=== PATIENT | male | born 1980 | race African-American/Black ===

== ENCOUNTER 2021-04-21 16:43 | Inpatient (IN) | payer OTHER ==
[~2021-04-21] VITALS: Ht 165.1 cm; Wt 104.3 kg
[2021-04-21] MEDS ORDERED: ACETAMINOPHEN ES 500 MG TABLET PO ONE (18:45)
[2021-04-21] MEDS ORDERED: ALBUTEROL SULFATE 8 GM HFA.AER.AD IH PRN ×2 (18:45→22:45)
[2021-04-21] MEDS ORDERED: DEXAMETHASONE SOD PHOSPHATE 4 MG INJ IV ONE (18:45)
[2021-04-21 19:11] LABS: HEMATOCRIT 46.9 % (36.7-47.1); MEAN CORPUSCULAR HEMOGLOBIN 30.6 uug (23.8-33.4); MEAN CORPUSCULAR VOLUME 90.6 fL (73.0-96.2); PLATELET COUNT (AUTO) 160 K/uL (152-348)
--- NOTE | 2021-04-21 19:13 | NUR ---
PCR COVID test collected and sent to LAB.
[2021-04-21 19:19] LABS: CARBON DIOXIDE 28 mmol/L (21-32); CHLORIDE 99 mmol/L (98-107); GLUCOSE 165 mg/dL (74-106); POTASSIUM 3.4 mmol/L (3.5-5.1); UREA NITROGEN, BLOOD 6 mg/dL (7-18)
--- NOTE | 2021-04-21 19:19 | NUR ---
Handsoff report given to Ede Talavera.
[2021-04-21] MEDS ORDERED: ACETAMINOPHEN ES 500 MG TABLET ONE (19:22)
[2021-04-21] MEDS ORDERED: DEXAMETHASONE SOD PHOSPHATE 10 MG INJ ONE (19:23)
[2021-04-21 19:31] LABS: ALANINE AMINOTRANSFERASE 96 U/L (16-63); ALKALINE PHOSPHATASE 40 U/L (50-136); ASPARTATE AMINOTRANSFERASE 61 U/L (15-37); BILIRUBIN,TOTAL 0.4 mg/dL (0.2-1.0); CREATINE KINASE, TOTAL 879 U/L (39-308); TOTAL PROTEIN, SERUM 7.4 g/dL (6.4-8.2)
[2021-04-21 19:56] LABS: FERRITIN 1883 ng/mL (26-388); LACTATE DEHYDROGENASE 333 U/L (85-227)
[2021-04-21] MEDS ORDERED: ENOXAPARIN SODIUM 80 MG/0.8 ML DISP.SYRIN SQ ONE ×2 (20:15→21:06)
[2021-04-21] MEDS ORDERED: IV NORMAL SALINE 500 ML BAG IV ONE (20:15)
[2021-04-21] MEDS ORDERED: POTASSIUM CHLORIDE 20 MEQ TAB.PRT.SR PO ONE (20:15)
[2021-04-21] MEDS ORDERED: ENOXAPARIN SODIUM 40 MG/0.4 ML DISP.SYRIN SQ ONE (21:03)
[2021-04-21] MEDS ORDERED: POTASSIUM CHLORIDE 20 MEQ TAB.PRT.SR ONE (21:04)
[2021-04-21] MEDS ORDERED: ALBUTEROL SULFATE 2.5 MG/3 ML NEBU NEB ONE (21:45)
[2021-04-21] MEDS ORDERED: ALBUTEROL SULFATE 2.5 MG/3 ML NEBU ONE (21:48)
--- NOTE | 2021-04-21 22:08 | NUR ---
Called [facility] to page Evangelina Ahuja NP.
--- NOTE | 2021-04-21 22:09 | NUR ---
Dr. Jones on panel call with Evangelina Ahuja NP.
[2021-04-22 01:30] VITALS: BP 108/66
[2021-04-22 05:55] VITALS: BP 124/71
[2021-04-22 06:50] LABS: HEMATOCRIT 46.3 % (36.7-47.1); MEAN CORPUSCULAR HEMOGLOBIN 30.7 uug (23.8-33.4); MEAN CORPUSCULAR VOLUME 91.7 fL (73.0-96.2); PLATELET COUNT (AUTO) 185 K/uL (152-348)
[2021-04-22 07:38] LABS: BILIRUBIN,TOTAL 0.3 mg/dL (0.2-1.0); POTASSIUM 4.5 mmol/L (3.5-5.1); TOTAL PROTEIN, SERUM 7.4 g/dL (6.4-8.2)
[2021-04-22] MEDS: DEXAMETHASONE SOD PHOSPHATE 4 MG INJ IV SCH (08:32)
[2021-04-22] MEDS ORDERED: ALBU8.5H8 INH (09:49)
[2021-04-22 11:03] VITALS: BP 102/55
[2021-04-22] MEDS ORDERED: REMDESIVIR (CHARGED) 200 MG in IV NORMAL SALINE 210 ML IV ONE (14:00)
[2021-04-22 15:04] VITALS: BP 104/57
[2021-04-22] MEDS: BENZONATATE 100 MG CAPSULE PO PRN (17:10)
[2021-04-22] MEDS: ALBUTEROL SULFATE 8 GM HFA.AER.AD IH PRN (18:14)
--- NOTE | 2021-04-22 18:24 | NUR ---
Patient resting in bed. AOx4. On 2L O2 via NC. NSR on monitoring engineer. No signs of acute distress. Patient denies SOB/ . Patient with right UA midline, patent and intact. Patient complained of cough, Tessalon Perles PRN given. Compliant with medications and care. Needs anticipated and met. Safety measures provided. Call light within reach. Will endorse to incoming shift for continuity of care.
[2021-04-22 20:00] VITALS: BP 100/41
[2021-04-22] MEDS: ENOXAPARIN SODIUM 40 MG/0.4 ML DISP.SYRIN SQ SCH (20:14)
[2021-04-23] VITALS: BP 117/54
[2021-04-23] MEDS: ACETAMINOPHEN 325 MG TABLET PO PRN (03:13)
[2021-04-23] MEDS: BENZONATATE 100 MG CAPSULE PO PRN ×2 (03:13→20:01)
[2021-04-23] MEDS: ALBUTEROL SULFATE 8 GM HFA.AER.AD IH PRN (03:28)
[2021-04-23 04:00] VITALS: BP 103/48
[2021-04-23] MEDS: PANTOPRAZOLE SODIUM 40 MG TABLET.DR PO SCH (06:32)
--- NOTE | 2021-04-23 06:53 | NUR ---
PT RESTED WELL IN BETWEEN CARE; NOTED TO BE WHEEZING; INHALER GIVEN; C/O HEADACHE, TYLENOL GIVEN; PT'S PCR CAME BACK NEGATIVE; PT ALSO WOULD LIKE TO HAVE HHN THAN INHALERS.
[2021-04-23 08:05] LABS: HEMATOCRIT 45.8 % (36.7-47.1); MEAN CORPUSCULAR HEMOGLOBIN 30.8 uug (23.8-33.4); MEAN CORPUSCULAR VOLUME 91.2 fL (73.0-96.2); PLATELET COUNT (AUTO) 215 K/uL (152-348)
[2021-04-23] MEDS: DEXAMETHASONE SOD PHOSPHATE 4 MG INJ IV SCH (08:08)
[2021-04-23 08:59] LABS: ALANINE AMINOTRANSFERASE 91 U/L (16-63); ALKALINE PHOSPHATASE 41 U/L (50-136); ASPARTATE AMINOTRANSFERASE 54 U/L (15-37); BILIRUBIN,TOTAL 0.3 mg/dL (0.2-1.0); CARBON DIOXIDE 29 mmol/L (21-32); CHLORIDE 104 mmol/L (98-107); CREATININE 0.8 mg/dL (0.6-1.3); GLUCOSE 136 mg/dL (74-106); TOTAL PROTEIN, SERUM 7.2 g/dL (6.4-8.2); UREA NITROGEN, BLOOD 11 mg/dL (7-18)
[2021-04-23 09:01] LABS: BILIRUBIN,DIRECT < 0.1 mg/dL (0.0-0.2)
--- NOTE | 2021-04-23 10:00 | NUR ---
NOTED MID LINE WITH RESISTANCE EVEN THOUGH IT WAS INSERTED YESTERDAY MD NOTIFIED STATED TO REINSERT CALLED AND NOTIFIED THE RADIO MAINTAINER AND HE STATED WILL CALL THE MIDLINE NURSE TO INSERT.
[2021-04-23 10:02] LABS: ABG BASE EXCESS 3.5 mmol/L; ABG HCO3 28.2 mmol/L; ABG PH 7.435 (7.350-7.450); ABG PO2 79.1 mmHg (75.0-100.0); ABG SITE RIGHT RADIAL; ABG TOTAL HEMOGLOBIN 15.5 G/dL (13.5-18.0); MetHb 0.3 % (0.0-1.5); O2Hb 94.8 % (94.0-97.0); VENT MODE Nasal Cannula
[2021-04-23 11:19] VITALS: BP 110/70
[2021-04-23] MEDS ORDERED: REMDESIVIR (CHARGED) 100 MG in IV NORMAL SALINE 100 ML IV SCH (14:00)
--- NOTE | 2021-04-23 14:00 | NUR ---
MID LINE INSERTED TO HIS LEFT UPPER ARM GAUGE 18 AND PATIENT TOLERATED PROCEDURE WELL.
[2021-04-23 15:13] VITALS: BP 110/54
--- NOTE | 2021-04-23 16:20 | NUR ---
PATIENT IS REQUESTING FOR HHN TREATMENT DR LONG NOTIFIED WITH ORDERS RESPIRATORY THERAPIST NOTIFIED TO INITIATE TREATMENT.
[2021-04-23] MEDS: ALBUTEROL SULFATE 1.25 MG/3 ML NEBU NEB PRN ×2 (16:57→21:37)
--- NOTE | 2021-04-23 18:00 | NUR ---
PATIENT IS RESTING STATED THAT THE HHN TREATMENT WAS HELPFUL INFORMED HIM THAT HE CAN GET IT NEEDED EVERY 4 HOURS AND HE EXPRESSED UNDERSTANDING.
--- NOTE | 2021-04-23 19:45 | NUR ---
PATIENT ALERT ORIENTED, NO CHEST PAIN, CONT ON HHN TX FOR COUGH AND SOB. PATIENT AFEBRILE, NO COMPLAIN OF PAIN, PATIENT HAS EPISODE OF DRY COUGH, CONT TO MONITOR. HHN TX HELPS PATIENT.
[2021-04-23 20:00] VITALS: BP 119/72
[2021-04-23] MEDS: ENOXAPARIN SODIUM 40 MG/0.4 ML DISP.SYRIN SQ SCH (20:20)
[2021-04-24] VITALS: BP 123/77
--- NOTE | 2021-04-24 03:39 | NUR ---
PATIENT ASLEEP, NO SOB NO CHEST PAIN, CONT ON OXYGEN 2 LITERS NC, SAT WNL. NO COMPLAIN OF PAIN, TELE MONITOR SINUS RHYTHM SINUS TACHY, CONT TO MONITOR.
[2021-04-24 04:00] VITALS: BP 125/83
[2021-04-24] MEDS: ALBUTEROL SULFATE 1.25 MG/3 ML NEBU NEB PRN ×4 (04:29→20:18)
[2021-04-24] MEDS: PANTOPRAZOLE SODIUM 40 MG TABLET.DR PO SCH (06:23)
[2021-04-24 06:38] LABS: HEMATOCRIT 42.8 % (36.7-47.1); MEAN CORPUSCULAR HEMOGLOBIN 30.6 uug (23.8-33.4); MEAN CORPUSCULAR VOLUME 91.4 fL (73.0-96.2); PLATELET COUNT (AUTO) 228 K/uL (152-348)
[2021-04-24 06:57] LABS: ALANINE AMINOTRANSFERASE 78 U/L (16-63); ALKALINE PHOSPHATASE 39 U/L (50-136); ASPARTATE AMINOTRANSFERASE 46 U/L (15-37); BILIRUBIN,DIRECT 0.2 mg/dL (0.0-0.2); BILIRUBIN,TOTAL 0.4 mg/dL (0.2-1.0); CARBON DIOXIDE 31 mmol/L (21-32); CHLORIDE 104 mmol/L (98-107); CREATININE 0.7 mg/dL (0.6-1.3); GLUCOSE 124 mg/dL (74-106); POTASSIUM 3.8 mmol/L (3.5-5.1); TOTAL PROTEIN, SERUM 6.6 g/dL (6.4-8.2); UREA NITROGEN, BLOOD 9 mg/dL (7-18)
--- NOTE | 2021-04-24 07:10 | NUR ---
RECEIVED PT AWAKE,ALERT AND ORIENTEDX4. PT IN NO ACUTE DISTRESS. IV INTACT. PT ON 2L NASAL CANNULA. SAFETY AND COMFORT PROVIDED. WILL CONTINUE TO MONITOR.
[2021-04-24] MEDS: DEXAMETHASONE SOD PHOSPHATE 4 MG INJ IV SCH (08:26)
[2021-04-24] MEDS: METFORMIN HCL 500 MG TABLET PO SCH ×2 (09:23→17:19)
--- NOTE | 2021-04-24 10:50 | NUR ---
RESPIRATORY THERAPIST CALLED TO DO BREATHING TREATMENT PRN.
[2021-04-24 11:25] VITALS: BP 122/54
--- NOTE | 2021-04-24 13:32 | NUR ---
Dr. Hansen saw the pt. Pt walked more than 20 feet without oxygen and got 98-100% room air oxygen saturation. Pt in no acute distress with steady gait . Safety and comfort provided. Will continue to monitor.
[2021-04-24 15:12] VITALS: BP 116/70
--- NOTE | 2021-04-24 18:57 | NUR ---
PT IN NO ACUTE RESPIRATORY DISTRESS. IV INTACT. BREATHING TREATMENT PRN NEEDED. PRESCRIBED MEDICATION GIVEN AND PT TOLERATED IT WELL. SAFETY AND COMFORT PROVIDED. ALL NEEDS ARE MET. WILL ENDORSE TO INCOMING NURSE FOR CONTINUITY OF CARE.
[2021-04-24 20:12] VITALS: BP 118/75
[2021-04-24] MEDS: ENOXAPARIN SODIUM 40 MG/0.4 ML DISP.SYRIN SQ SCH (20:48)
[2021-04-24] MEDS: levoFLOXacin 750MG/D5W 750 MG in PREMIXED 1 EACH IV SCH (21:01)
--- NOTE | 2021-04-24 22:15 | NUR ---
Patient in bed AALOx4 with O2 at 2LPM via NC , no s/s of distress noted. Denies pain. Breathing tx provided PRN. Midline on left arm intact.Infused IV ATB as ordered.No a/r noted.VSS .
[2021-04-25 04:30] VITALS: BP 109/60
[2021-04-25] MEDS: PANTOPRAZOLE SODIUM 40 MG TABLET.DR PO SCH (06:06)
[2021-04-25] MEDS: ALBUTEROL SULFATE 1.25 MG/3 ML NEBU NEB PRN ×4 (07:29→19:29)
--- NOTE | 2021-04-25 08:00 | NUR ---
received report from awake overnight counselor nurse. pt is alert and oriented x 4. on tele, runs tachycardic. pt is ambulatory. complains of cough but refused tessalon during awake overnight counselor. will continue to monitor.
[2021-04-25] MEDS: METFORMIN HCL 500 MG TABLET PO SCH ×2 (08:49→18:13)
[2021-04-25] MEDS: BENZONATATE 100 MG CAPSULE PO PRN (09:35)
--- NOTE | 2021-04-25 09:46 | NUR ---
pt complains of cough and spitting up mucus that is "dark purple" provided tessalon for cough, pt agreed to take it but finds it is not effective. provided specimen cup for pt to use when spitting up mucus to evaluate.notified MD. New orders carried out.
--- NOTE | 2021-04-25 11:00 | NUR ---
assessed sputum in specimen cup, appears cloudy with small tainted blood. administered prn Robitussin, pt stated Robitussin alleviated some of the discomfort and congestion from coughing.
[2021-04-25] MEDS: GUAIFENESIN/CODEINE 5 ML LIQUID UDC PO PRN ×2 (11:37→18:12)
[2021-04-25 11:45] VITALS: BP 127/68
--- NOTE | 2021-04-25 13:00 | NUR ---
rapid covid test performed. negative result. md notified.
[2021-04-25 16:00] VITALS: BP 117/67
[2021-04-25] MEDS ORDERED: LEVO500T90 PO (18:08)
[2021-04-25] MEDS ORDERED: GUAI-925 PO (18:08)
[2021-04-25] MEDS ORDERED: ALBU8.5H8 INH (18:08)
[2021-04-25] MEDS ORDERED: METF-440 PO (18:08)
--- NOTE | 2021-04-25 19:04 | NUR ---
PT STILL HAVING SOME TROUBLE BREATHING. PAIN WITH COUGH. MD NOTIFIED. WILL CONTINUE WITH DC TOMORROW AM 04/26/21.
--- NOTE | 2021-04-25 19:30 | NUR ---
Receive patient sitting up in bed. AAOx4. In no apparent distress. Denies any pain at this time. Mild SOB on exertion. On O2 at 2LPM via NC. O2 sat at 93% at this time. Telephone call to RT to provide breathing treatment and Peter states understanding. Sinus tachy on tele at 125/min. Midline on left upper arm intact and patent. Needs assessed and attended to. Safety measure initiated and call berry within reached.
--- NOTE | 2021-04-25 19:45 | NUR ---
Dr Hansen into visit. Informed regarding pt diet order as regular and pt with hx of DM and gave verbal order to [facility]. Order carried out.
--- NOTE | 2021-04-25 19:52 | NUR ---
Dr. Anaya with verbal order to place patient on Motrin 400mg 1 tab PO every 8 hours PRN for pain. Order read back and verified. Will carry out order.
[2021-04-25] MEDS: IBUPROFEN 400 MG TABLET PO PRN (20:21)
[2021-04-25] MEDS: ENOXAPARIN SODIUM 40 MG/0.4 ML DISP.SYRIN SQ SCH (20:21)
[2021-04-25] MEDS: levoFLOXacin 750MG/D5W 750 MG in PREMIXED 1 EACH IV SCH (20:21)
[2021-04-25 20:25] VITALS: BP 113/70
--- NOTE | 2021-04-25 21:30 | NUR ---
Dressing on midline coming off. Dressing change to midline site done.
[2021-04-26] VITALS: BP 109/76
[2021-04-26] MEDS: ONDANSETRON ODT 4 MG TAB.RAPDIS SL PRN (03:31)
[2021-04-26 04:00] VITALS: BP 115/70
[2021-04-26] MEDS: GUAIFENESIN/CODEINE 5 ML LIQUID UDC PO PRN ×3 (06:06→20:17)
[2021-04-26] MEDS: PANTOPRAZOLE SODIUM 40 MG TABLET.DR PO SCH (06:06)
--- NOTE | 2021-04-26 06:14 | NUR ---
AAOx4. In no apparent distress. Denies any pain or discomfort. Afebrile. Sporadic cough. Robitussin AC 10ml x1 given this AM per pt request for cough and effective. On O2 at 2LPM via NC. O2 sat at 93%. Sinus tachy on tele at 129/min. Zofran PRN per order given x1 for complain of nausea and effective. Midline on left upper arm intact and patent. No adverse reaction noted from IV antibiotic. Needs attended to and met. Safety measure maintained and call berry within reached.
[2021-04-26 06:37] LABS: HEMATOCRIT 45.9 % (36.7-47.1); MEAN CORPUSCULAR HEMOGLOBIN 30.6 uug (23.8-33.4); MEAN CORPUSCULAR VOLUME 91.1 fL (73.0-96.2); PLATELET COUNT (AUTO) 287 K/uL (152-348)
[2021-04-26 06:50] LABS: CREATININE 0.8 mg/dL (0.6-1.3); MAGNESIUM 2.6 mg/dL (1.8-2.4); PHOSPHOROUS 3.4 mg/dL (2.5-4.9); POTASSIUM 4.2 mmol/L (3.5-5.1)
[2021-04-26] MEDS: ALBUTEROL SULFATE 1.25 MG/3 ML NEBU NEB PRN ×2 (07:27→11:17)
--- NOTE | 2021-04-26 08:00 | NUR ---
RECEIVED CHANGE OF SHIFT REPORT ON PT, PT IN BED RESTING, ON O2 VIA NC SATURATING AT 98%, NO SIGNS OF DISTRESS, NO REPORTS OF PAIN AT THIS TIME. PT BED LOW AND LOCKED, CALL LIGHT WITHIN REACH, HOB ELEVATED, PT HAS MIDLINE ON THE LEFT AC, DRESSING CHANGED, IN TACT. WILL CONTINUE TO MONITOR.
[2021-04-26] MEDS: METFORMIN HCL 500 MG TABLET PO SCH (09:09)
[2021-04-26] MEDS ORDERED: SWABABLE VALVE TRANSFER SET EA MC ONE (09:35)
[2021-04-26] MEDS ORDERED: IV NORMAL SALINE 250 ML IV ONE (09:35)
[2021-04-26] MEDS ORDERED: IOHEXOL 350 100 ML INFUS..BTL ONE (09:35)
--- NOTE | 2021-04-26 10:30 | NUR ---
PT WENT FOR CT ANGIO. CONSENT OBTAINED AND IN CHART
--- NOTE | 2021-04-26 11:00 | NUR ---
PT BACK FROM CT, WILL HOLD METFORMIN DOSE FOR 48 HRS, PHARMACY MADE AWARE. WILL CONTINUE TO MONITOR.
[2021-04-26] MEDS: FLUTICASONE/VILANTEROL 1 EACH BLST.W.DEV INH SCH (11:19)
[2021-04-26 11:45] VITALS: BP 123/68
--- NOTE | 2021-04-26 12:21 | NUR ---
SW Consult: SW spoke with patient by phone and assessed patient's current living status. Patient stated he is not homeless and provided an address for residence [address] [place] [address]. Patient states he has a daughter named Jorge Luis however he does not remember her phone number. Patient denies suicidal or homicidal ideation. Patient denies substance use. Patient was unable to answer further questions at this time due to not feeling well. SW will remain available for ongoing clinical social worker needs.
--- NOTE | 2021-04-26 14:25 | NUR ---
RAPID RESPONSE CALLED, PT ON 4L VIA NC, SATURATION WAS AT 82%, NO REPORTS OF PAIN, PT SITTING UP IN BED. MD NOTIFIED, NEW ORDERS GIVEN AND CARRIED OUT. PT SWITCHED TO NON REBREATHER NOW SATURATING AT 96%. WILL CONTINUE TO MONITOR.
[2021-04-26 16:01] VITALS: BP 124/67
[2021-04-26] MEDS: DEXAMETHASONE SOD PHOSPHATE 4 MG INJ IV SCH (16:30)
[2021-04-26] MEDS: ACETAMINOPHEN 325 MG TABLET PO PRN (17:33)
--- NOTE | 2021-04-26 17:35 | NUR ---
OBTAINED PCR TO R/O COVID, PT EXHIBITING S/SX. NO REPORTS OF PAIN, PT STATES HE OS OKAY AT THIS TIME, ON NON REBREATHER SATURATING 96%, PT DESATURATES TO 85% WHEN MASK IS TAKEN OFF TO SWALLOW MEDICATIONS. WILL CONTINUE TO MONITOR.
[2021-04-26] MEDS: ASCORBIC ACID 500 MG TABLET PO SCH (17:57)
[2021-04-26] MEDS: CHOLECALCIFEROL 1,000 UNIT TABLET PO SCH (17:57)
--- NOTE | 2021-04-26 19:40 | NUR ---
Updated Dr. Hansen regarding patient current condition. Stated the Cardiac consul and ID consult are all called already. Also ordered blood culturex2. Order carried out.
--- NOTE | 2021-04-26 20:00 | NUR ---
Receive patient lying in bed. Remains AAOx4. In no apparent distress at this time. Denies any SOB. On O2 via non-rebreather mask. O2 sat at 97% at this time. Sinus tachy on tele at 104/min. Afebrile at this time with temp of 98.7 orally. Midline on left upper arm intact and patent, Dressing reinforced. COVID precaution observed. Needs assessed and attended to. Safety measure initiated and call berry within reached.
[2021-04-26] MEDS: IBUPROFEN 400 MG TABLET PO PRN (20:17)
[2021-04-26] MEDS: levoFLOXacin 750MG/D5W 750 MG in PREMIXED 1 EACH IV SCH (20:17)
[2021-04-26] MEDS: ENOXAPARIN SODIUM 40 MG/0.4 ML DISP.SYRIN SQ SCH (20:18)
[2021-04-26 20:25] VITALS: BP 110/61
[2021-04-27 00:05] VITALS: BP 91/51
--- NOTE | 2021-04-27 03:20 | NUR ---
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 Patient asleep during admission. Arousable to verbal and to touch. AOx4. In no acute distress. Stated she just want to sleep as she has not had any sleep for 4 days now. Denies any pain or SOB. Temp. at this time 100.8 orally. Cooling measure provided. Dr. Leonardo aware and awaiting for admission order. Sinus tachy at 104/min. Pt ambulatory and supervised to the toilet. Continent of urine. Routine admission care done. Plan of care initiated. Safety measure initiated and call berry within reached. Addendum: 04/27/21 at 0523 by GIANCARLO OREILLY RN Wrong patient
[2021-04-27] MEDS: GUAIFENESIN/CODEINE 5 ML LIQUID UDC PO PRN ×4 (03:29→20:37)
[2021-04-27] MEDS: ALBUTEROL SULFATE 8 GM HFA.AER.AD IH PRN (03:34)
[2021-04-27 04:30] VITALS: BP 111/61
[2021-04-27] MEDS: PANTOPRAZOLE SODIUM 40 MG TABLET.DR PO SCH (06:01)
[2021-04-27 06:23] LABS: HEMATOCRIT 45.4 % (36.7-47.1); MEAN CORPUSCULAR HEMOGLOBIN 30.4 uug (23.8-33.4); MEAN CORPUSCULAR VOLUME 90.9 fL (73.0-96.2); PLATELET COUNT (AUTO) 358 K/uL (152-348)
--- NOTE | 2021-04-27 06:27 | NUR ---
AAOx4. On O2 via non-rebreather mask. O2 sat fluctuating between 88-93% with non-rebreather in place. Denies any SOB. NSR on on tele at 94/min. a t this time. Afebrile. Midline on left upper arm intact and patent. No adverse reaction noted from IV antibiotics. Robitussin AC 10ml PO PRN provided for cough and effective. COVID precaution maintained. Needs assessed and attended to. Safety measure maintained and call berry within reached.
[2021-04-27 07:41] LABS: ALANINE AMINOTRANSFERASE 120 U/L (16-63); ALKALINE PHOSPHATASE 48 U/L (50-136); ASPARTATE AMINOTRANSFERASE 46 U/L (15-37); BILIRUBIN,TOTAL 0.6 mg/dL (0.2-1.0); CARBON DIOXIDE 25 mmol/L (21-32); CHLORIDE 100 mmol/L (98-107); CREATININE 0.7 mg/dL (0.6-1.3); FERRITIN 2618 ng/mL (26-388); GLUCOSE 129 mg/dL (74-106); MAGNESIUM 3.2 mg/dL (1.8-2.4); PHOSPHOROUS 4.5 mg/dL (2.5-4.9); POTASSIUM 4.4 mmol/L (3.5-5.1); TOTAL PROTEIN, SERUM 7.6 g/dL (6.4-8.2); UREA NITROGEN, BLOOD 13 mg/dL (7-18)
--- NOTE | 2021-04-27 07:45 | NUR ---
Sleeping, on high back rest. O2 with NRB at 15L with O2 sat of 93%. Tele SR 95
--- NOTE | 2021-04-27 09:00 | NUR ---
O2 with 6L/NC and NRB 15L with O2 sat of 88-92%
[2021-04-27] MEDS: DEXAMETHASONE SOD PHOSPHATE 4 MG INJ IV SCH (09:41)
[2021-04-27] MEDS: ASCORBIC ACID 500 MG TABLET PO SCH (09:41)
[2021-04-27] MEDS: CHOLECALCIFEROL 1,000 UNIT TABLET PO SCH (09:41)
[2021-04-27] MEDS: FLUTICASONE/VILANTEROL 1 EACH BLST.W.DEV INH SCH (09:42)
--- NOTE | 2021-04-27 10:10 | NUR ---
With bouts of cough, Robitussin po given as ordered
[2021-04-27] MEDS: IBUPROFEN 400 MG TABLET PO PRN (14:03)
--- NOTE | 2021-04-27 15:15 | NUR ---
O2 sat on 88-90%. Place don HIFLOW 40L 100% with O2 sat of 90%. Added NRB 15L with O2 sat of 92-93%. Robitussin given for cough. Motrin given for abdominal cramps from coughing
[2021-04-27 15:22] LABS: ABG BASE EXCESS 3.7 mmol/L; ABG HCO3 28.9 mmol/L; ABG PCO2 45.3 mmHg (35.0-45.0); ABG PH 7.423 (7.350-7.450); ABG PO2 100.1 mmHg (75.0-100.0); ABG SITE RIGHT RADIAL; ABG TOTAL HEMOGLOBIN 16.1 G/dL (13.5-18.0); COHb 0.9 % (0.5-1.5); MetHb 0.3 % (0.0-1.5); O2Hb 96.7 % (94.0-97.0); VENT MODE HF - 40 Lpm - 100%
[2021-04-27] MEDS ORDERED: MORPHINE SULFATE 2 MG/1 ML DISP.SYRIN IV PRN (15:45)
[2021-04-27 16:00] VITALS: BP 133/79
--- NOTE | 2021-04-27 19:02 | NUR ---
Patient on HIFLOW at 40L 100% off NRB with O2 sat of 97%. Patient comfortable
[2021-04-27 20:20] VITALS: BP 107/62
[2021-04-27] MEDS: levoFLOXacin 750MG/D5W 750 MG in PREMIXED 1 EACH IV SCH (20:36)
[2021-04-27] MEDS: ENOXAPARIN SODIUM 40 MG/0.4 ML DISP.SYRIN SQ SCH (20:37)
--- NOTE | 2021-04-27 22:20 | NUR ---
Patient on high flow 40 L FIO2 100 % saturating at 97 %.No s/s of distress noted. Addendum: 04/27/21 at 2233 by DENA MALONEY RN Amended: Links added.
[2021-04-28 00:17] VITALS: BP 111/61
[2021-04-28] MEDS: GUAIFENESIN/CODEINE 5 ML LIQUID UDC PO PRN ×4 (00:37→21:17)
--- NOTE | 2021-04-28 00:39 | NUR ---
Patient c/o cough but denies pain . Noted O2 sat went down to 89 % when he cough and when he tries to stand .Urinated well using urinal.Robitussin PRN given as ordered.HOB remain elevated.Placed patient back to NRB at 15L by Rt ,continue on High flow 40L FIO2 at 100% .O2 sat went up to 94%.No s/s of distress noted. Call light with in reach.
[2021-04-28 04:39] VITALS: BP 106/61
[2021-04-28 06:08] LABS: HEMATOCRIT 44.6 % (36.7-47.1); MEAN CORPUSCULAR HEMOGLOBIN 30.3 uug (23.8-33.4); MEAN CORPUSCULAR VOLUME 90.4 fL (73.0-96.2); PLATELET COUNT (AUTO) 402 K/uL (152-348)
[2021-04-28] MEDS: PANTOPRAZOLE SODIUM 40 MG TABLET.DR PO SCH (06:19)
[2021-04-28 06:57] LABS: CREATININE 0.8 mg/dL (0.6-1.3); MAGNESIUM 2.7 mg/dL (1.8-2.4); PHOSPHOROUS 3.7 mg/dL (2.5-4.9); POTASSIUM 4.2 mmol/L (3.5-5.1)
--- NOTE | 2021-04-28 07:30 | NUR ---
received in bed awake and responsive. no acute distress noted. on high flow nc 40lpm 100% oxygen and nrb mask 15lpm spo2 noted 94-95%. denies pain or discomfort. hob elevated. breathing non labored. stated he's ok. call light in reach. will continue to monitor.
[2021-04-28 08:29] VITALS: BP 127/75
[2021-04-28] MEDS: ASCORBIC ACID 500 MG TABLET PO SCH (08:58)
[2021-04-28] MEDS: CHOLECALCIFEROL 1,000 UNIT TABLET PO SCH (08:58)
[2021-04-28] MEDS: DEXAMETHASONE SOD PHOSPHATE 4 MG INJ IV SCH ×3 (08:59→21:01)
[2021-04-28] MEDS: FLUTICASONE/VILANTEROL 1 EACH BLST.W.DEV INH SCH (09:00)
--- NOTE | 2021-04-28 09:11 | NUR ---
noted with occasional non productive coughing. denies chest pain or sob.
--- NOTE | 2021-04-28 11:30 | NUR ---
sitting at edge of bed drinking tea. denies pain or sob. no distress. on high flow 40lpm 100% and nrb 15lpm spo2 93-94%. verified with pt that it's ok to give info to his brother son. pt stated it's ok and he wants him as responsible green party. faxed updated fs to [facility] admission. also told him dr. browne requests copy of outpatient positive covid result. pt said it's on his phone somewhere will find it. will f/u later.
[2021-04-28 12:00] VITALS: BP 122/74
[2021-04-28] MEDS ORDERED: METFORMIN HCL 500 MG TABLET PO SCH (12:30)
--- NOTE | 2021-04-28 15:21 | NUR ---
informed dr. baires and dr. browne of positive pcr test nno at this time.
--- NOTE | 2021-04-28 15:38 | NUR ---
spoke to brothchai cline and given update.
[2021-04-28 16:06] VITALS: BP 99/51
[2021-04-28] MEDS: METFORMIN HCL 500 MG TABLET PO SCH (17:22)
[2021-04-28] MEDS ORDERED: TOCILIZUMAB 800 MG in IV NORMAL SALINE 60 ML IV ONE (18:00)
--- NOTE | 2021-04-28 18:42 | NUR ---
sitting at edge of bed talking on the phone. no resp distress noted. denies sob. remains on high flow 40lpm 100% o2 and nrb 15 lpm spo2 93-94%. needs attended. safety maintained. kept comfortable. Addendum: 04/28/21 at 1857 by DOMINGUEZ MONTOYA RN sinus tachy on tele at 102 bpm
[2021-04-28 20:23] VITALS: BP 102/57
[2021-04-28] MEDS: levoFLOXacin 750MG/D5W 750 MG in PREMIXED 1 EACH IV SCH (20:59)
[2021-04-28] MEDS: ENOXAPARIN SODIUM 40 MG/0.4 ML DISP.SYRIN SQ SCH (21:00)
[2021-04-29 00:06] VITALS: BP 103/56
[2021-04-29 04:47] VITALS: BP 108/56
[2021-04-29] MEDS: PANTOPRAZOLE SODIUM 40 MG TABLET.DR PO SCH (06:09)
[2021-04-29] MEDS: DEXAMETHASONE SOD PHOSPHATE 4 MG INJ IV SCH ×3 (06:09→21:31)
[2021-04-29] MEDS: GUAIFENESIN/CODEINE 5 ML LIQUID UDC PO PRN ×3 (06:22→21:12)
[2021-04-29 06:29] LABS: HEMATOCRIT 44.8 % (36.7-47.1); MEAN CORPUSCULAR HEMOGLOBIN 30.7 uug (23.8-33.4); MEAN CORPUSCULAR VOLUME 91.1 fL (73.0-96.2); PLATELET COUNT (AUTO) 438 K/uL (152-348)
--- NOTE | 2021-04-29 06:54 | NUR ---
Pt in no distress at this time. Satting 94-97% on 40L HF and 15L NR. Denies pain. Tolerated all medications given. Cough medication given for cough PRN. Pt able to make needs known. Covid precautions in place. Safety and comfort provided, will endorse to day shift.
[2021-04-29 06:57] LABS: BILIRUBIN,DIRECT 0.2 mg/dL (0.0-0.2); BILIRUBIN,TOTAL 0.5 mg/dL (0.2-1.0); CREATININE 0.8 mg/dL (0.6-1.3); MAGNESIUM 2.7 mg/dL (1.8-2.4); PHOSPHOROUS 4.3 mg/dL (2.5-4.9); POTASSIUM 4.2 mmol/L (3.5-5.1); TOTAL PROTEIN, SERUM 7.4 g/dL (6.4-8.2)
--- NOTE | 2021-04-29 07:30 | NUR ---
RECEIVED PT AWAKE, ALERT AND ORIENTEDX4. PT IN NO ACUTE RESPIRATORY DISTRESS. PT ON HIGH FLOW AND NONREBREATHER MASK. SAFETY AND COMFORT PROVIDED. WILL CONTINUE TO MONITOR.
[2021-04-29] MEDS: ASCORBIC ACID 500 MG TABLET PO SCH (08:40)
[2021-04-29] MEDS: METFORMIN HCL 500 MG TABLET PO SCH ×2 (08:40→17:16)
[2021-04-29] MEDS: CHOLECALCIFEROL 1,000 UNIT TABLET PO SCH (08:40)
[2021-04-29] MEDS: FLUTICASONE/VILANTEROL 1 EACH BLST.W.DEV INH SCH (09:00)
--- NOTE | 2021-04-29 09:24 | NUR ---
PT REFUSED HIS LILY MEDICATION. PT ON NO ACUTE RESPIRATORY DISTRESS.
--- NOTE | 2021-04-29 11:20 | NUR ---
BRITTANY GUTIERREZ MOTHER OF PT CALLED AND WANTS UPDATE REGARDING HIS SON. TOLD BRITTANY SHE'S NOT ON THE LIST FOR PERSON TO NOTIFY AND NEED CONSENT FROM HIS SON.
[2021-04-29 11:45] VITALS: BP 102/58
--- NOTE | 2021-04-29 14:37 | NUR ---
Pt given Robitussin ac PRN PER PT REQUEST. . NONE MISSING IN THE MEDICATION ROOM. ACTUAL COUNT IS 1 LEFT. WITNESS WITH PHARMACIST PEPITO AND EMMA SHORT REGARDING THE DISCREPANCY BUT NONE MISSING. GAVE 2 CUPS TO PT TO HAVE 10 ML PRN. FIRST ATTEMPT TOOK ONLY ONE CUP SO WHEN I REDO IT GAVE DISCREPANCY BUT NONE MISSING.
[2021-04-29] MEDS ORDERED: TOCILIZUMAB 800 MG in IV NORMAL SALINE 60 ML IV ONE (15:00)
[2021-04-29 16:00] VITALS: BP 113/71
--- NOTE | 2021-04-29 18:13 | NUR ---
PT IN NO ACUTE DISTRESS. PT ON HIGH FLOW AND NONREBREATHER MASK. PT TOLERATED IT WELL. PT IV INTACT.PRESCRIBED MEDICATION GIVEN AND PT TOLERATED IT WELL. PT NEEDS TO BE REMINDED TO ALWAYS PUT HIS NONREBREATHER MASK. PT CAN MAKE HIS NEEDS KNOWN. SAFETY AND COMFORT PROVIDED. WILL CONTINUE ENDORSE TO INCOMING NURSE FOR CONTINUITY OF CARE.
[2021-04-29] MEDS: REMDESIVIR (CHARGED) 100 MG in IV NORMAL SALINE 100 ML IV SCH (19:49)
[2021-04-29 20:00] VITALS: BP 112/79
[2021-04-29] MEDS: levoFLOXacin 750MG/D5W 750 MG in PREMIXED 1 EACH IV SCH (20:14)
[2021-04-29] MEDS: ENOXAPARIN SODIUM 40 MG/0.4 ML DISP.SYRIN SQ SCH (20:42)
[2021-04-30] VITALS (7 sets, daily range): BP systolic 96–147; BP diastolic 54–73
[2021-04-30] MEDS: GUAIFENESIN/CODEINE 5 ML LIQUID UDC PO PRN ×3 (01:46→17:47)
[2021-04-30] MEDS: DEXAMETHASONE SOD PHOSPHATE 4 MG INJ IV SCH ×3 (05:31→21:05)
[2021-04-30] MEDS: PANTOPRAZOLE SODIUM 40 MG TABLET.DR PO SCH (06:10)
--- NOTE | 2021-04-30 06:53 | NUR ---
Patient AAOX4, COVID 19 with PNA. on high flow and nonrebreather mask. tolerated well.
[2021-04-30] MEDS: METFORMIN HCL 500 MG TABLET PO SCH ×2 (09:06→17:07)
[2021-04-30] MEDS: ASCORBIC ACID 500 MG TABLET PO SCH (09:07)
[2021-04-30] MEDS: CHOLECALCIFEROL 1,000 UNIT TABLET PO SCH (09:07)
[2021-04-30 09:38] LABS: HEMATOCRIT 43.4 % (36.7-47.1); MEAN CORPUSCULAR HEMOGLOBIN 30.6 uug (23.8-33.4); MEAN CORPUSCULAR VOLUME 91.4 fL (73.0-96.2); PLATELET COUNT (AUTO) 411 K/uL (152-348)
[2021-04-30 09:49] LABS: CREATININE 0.9 mg/dL (0.6-1.3); POTASSIUM 4.3 mmol/L (3.5-5.1)
[2021-04-30 09:55] LABS: BILIRUBIN,DIRECT 0.1 mg/dL (0.0-0.2); BILIRUBIN,TOTAL 0.4 mg/dL (0.2-1.0); TOTAL PROTEIN, SERUM 6.7 g/dL (6.4-8.2)
[2021-04-30] MEDS: FLUTICASONE/VILANTEROL 1 EACH BLST.W.DEV INH SCH (10:57)
--- NOTE | 2021-04-30 18:30 | NUR ---
Patient is alert/oriented x4, on continuous oxygen, high flow 40L via non rebreather, 15L via NC. Patient is saturating at 88-92%. Denies pain during the shift. Frequent visual check done. Kept call light within reach. Assisted with ADLs. All needs attended. Kept environment safe. All due meds given as ordered. Will endorse to the next shift for continuity of care. Addendum: 04/30/21 at 1832 by BURT HICKEY RN Ex - Nakia and Brother Tank called for an update.
[2021-04-30] MEDS: REMDESIVIR (CHARGED) 100 MG in IV NORMAL SALINE 100 ML IV SCH (20:06)
[2021-04-30] MEDS: levoFLOXacin 750MG/D5W 750 MG in PREMIXED 1 EACH IV SCH (20:20)
[2021-04-30] MEDS: ENOXAPARIN SODIUM 40 MG/0.4 ML DISP.SYRIN SQ SCH (20:35)
[2021-05-01] VITALS (7 sets, daily range): BP systolic 94–119; BP diastolic 47–68
[2021-05-01] MEDS: DEXAMETHASONE SOD PHOSPHATE 4 MG INJ IV SCH ×3 (05:17→21:12)
[2021-05-01] MEDS: PANTOPRAZOLE SODIUM 40 MG TABLET.DR PO SCH (06:05)
[2021-05-01 07:41] LABS: HEMATOCRIT 44.9 % (36.7-47.1); MEAN CORPUSCULAR HEMOGLOBIN 30.6 uug (23.8-33.4); MEAN CORPUSCULAR VOLUME 91.8 fL (73.0-96.2); PLATELET COUNT (AUTO) 372 K/uL (152-348)
[2021-05-01 07:57] LABS: BILIRUBIN,DIRECT 0.2 mg/dL (0.0-0.2); BILIRUBIN,TOTAL 0.5 mg/dL (0.2-1.0); CREATININE 0.8 mg/dL (0.6-1.3); POTASSIUM 4.7 mmol/L (3.5-5.1); TOTAL PROTEIN, SERUM 6.6 g/dL (6.4-8.2)
--- NOTE | 2021-05-01 08:00 | NUR ---
AWAKE ALERT AND ORIENTED X3 SITTING IN BED WITHOUT ANY SOB WITH 40%/15 NRM. DENIES PAIN. SR ON MONITOR. CONTINUE TELE MONITORING AND PLAN OF CARE
[2021-05-01] MEDS: ASCORBIC ACID 500 MG TABLET PO SCH (08:24)
[2021-05-01] MEDS: METFORMIN HCL 500 MG TABLET PO SCH ×2 (08:24→17:24)
[2021-05-01] MEDS: CHOLECALCIFEROL 1,000 UNIT TABLET PO SCH (08:24)
[2021-05-01] MEDS: FLUTICASONE/VILANTEROL 1 EACH BLST.W.DEV INH SCH (08:25)
--- NOTE | 2021-05-01 11:24 | NUR ---
SEEN BY DR MIDDLETON FOR FOLLOW-UP SEE NOTES. CONTINUE ON 40%/15L NRM SATURATING 93%
[2021-05-01] MEDS: GUAIFENESIN/CODEINE 5 ML LIQUID UDC PO PRN ×2 (14:40→20:08)
[2021-05-01] MEDS: ACETAMINOPHEN 325 MG TABLET PO PRN (20:08)
[2021-05-01] MEDS: REMDESIVIR (CHARGED) 100 MG in IV NORMAL SALINE 100 ML IV SCH (20:08)
[2021-05-01] MEDS: ENOXAPARIN SODIUM 40 MG/0.4 ML DISP.SYRIN SQ SCH (20:09)
--- NOTE | 2021-05-01 20:15 | NUR ---
Received patient lying in bed AAOx4. Denies any pain or SOB. On high flow O2 at 40%. O2 sat at 95% at this time. Complain of cough, given Robitussin AC 10ml per order. Other due meds also given. NSR on tele at 86/min. Midline on left upper arm intact and patent. COVID precaution observed. Needs assessed and attended to. Safety measure initiated and call berry within reached. Addendum: 05/02/21 at 0608 by GIANCARLO OREILLY RN Midline on right upper arm.
[2021-05-02] MEDS: GUAIFENESIN/CODEINE 5 ML LIQUID UDC PO PRN ×4 (03:15→20:47)
[2021-05-02 04:30] VITALS: BP 110/56
--- NOTE | 2021-05-02 06:06 | NUR ---
AAOx4. Denies any pain or SOB. On high flow O2 at 40L. O2 sat fluctuating between 91-93%. Complain of cough, given Robitussin AC 10ml per order and effective. Afebrile. NSR on tele at 70/min. Midline on right upper arm intact and patent. COVID precaution maintained. Needs attended to and met. Safety measure maintained and call berry within reached.
[2021-05-02] MEDS: DEXAMETHASONE SOD PHOSPHATE 4 MG INJ IV SCH ×3 (06:11→21:00)
[2021-05-02] MEDS: PANTOPRAZOLE SODIUM 40 MG TABLET.DR PO SCH (06:11)
[2021-05-02 06:56] LABS: HEMATOCRIT 44.3 % (36.7-47.1); MEAN CORPUSCULAR HEMOGLOBIN 30.6 uug (23.8-33.4); MEAN CORPUSCULAR VOLUME 91.1 fL (73.0-96.2); PLATELET COUNT (AUTO) 356 K/uL (152-348)
[2021-05-02 07:11] LABS: BILIRUBIN,DIRECT 0.2 mg/dL (0.0-0.2); BILIRUBIN,TOTAL 0.4 mg/dL (0.2-1.0); CREATININE 0.9 mg/dL (0.6-1.3); POTASSIUM 4.9 mmol/L (3.5-5.1); TOTAL PROTEIN, SERUM 6.3 g/dL (6.4-8.2)
--- NOTE | 2021-05-02 08:00 | NUR ---
AWAKE ALERT AND ORIENTED X3 NO SS OF PAIN OR ACUTE RESPIRATORY DISTRESS, CONTINUE WITH 40% HI NASEEM SATURATING 92-94%. WITH ON AND OF DRY TO MODERATE PHLEGM
[2021-05-02] MEDS: ACETAMINOPHEN 325 MG TABLET PO PRN (08:21)
[2021-05-02] MEDS: METFORMIN HCL 500 MG TABLET PO SCH ×2 (08:21→17:24)
[2021-05-02] MEDS: ASCORBIC ACID 500 MG TABLET PO SCH (08:21)
[2021-05-02] MEDS: CHOLECALCIFEROL 1,000 UNIT TABLET PO SCH (08:21)
[2021-05-02] MEDS: FLUTICASONE/VILANTEROL 1 EACH BLST.W.DEV INH SCH (08:22)
[2021-05-02 12:00] VITALS: BP 106/61
--- NOTE | 2021-05-02 12:00 | NUR ---
NO ACUTE CHANGE FROM MORNING ASSESSMENT.
--- NOTE | 2021-05-02 15:10 | NUR ---
PATIENT TOLERATING 40% HI NASEEM OXYGEN SATURATING 93-96%. SITTING MOST OF THE SHIFT. CONTINUE WITH CURRENT TX PLAN
[2021-05-02] MEDS: REMDESIVIR (CHARGED) 100 MG in IV NORMAL SALINE 100 ML IV SCH (19:59)
[2021-05-02 20:30] VITALS: BP 110/59
[2021-05-02] MEDS: APIXABAN 5 MG TABLET PO SCH (21:20)
--- NOTE | 2021-05-02 21:21 | NUR ---
Received pt resting and sitting up in bed. AAO x4. On high flow 40%, saturation fluctuates 90-97%. No acute distress noted. Denies SOB or CP. Denies pain/ discomfort. Due meds given as ordered. VIVIENNE midline, patent and intact. Safety measures maintained. Call light and personal items within reach. Will continue to monitor.
[2021-05-03 00:15] VITALS: BP 97/50
[2021-05-03 04:30] VITALS: BP 96/57
[2021-05-03] MEDS: PANTOPRAZOLE SODIUM 40 MG TABLET.DR PO SCH (06:02)
[2021-05-03] MEDS: DEXAMETHASONE SOD PHOSPHATE 4 MG INJ IV SCH ×3 (06:02→21:45)
[2021-05-03] MEDS: GUAIFENESIN/CODEINE 5 ML LIQUID UDC PO PRN ×3 (06:03→21:22)
[2021-05-03 07:45] VITALS: BP 101/49
[2021-05-03] MEDS: CHOLECALCIFEROL 1,000 UNIT TABLET PO SCH (09:20)
[2021-05-03] MEDS: APIXABAN 5 MG TABLET PO SCH ×2 (09:21→20:42)
[2021-05-03] MEDS: METFORMIN HCL 500 MG TABLET PO SCH ×2 (09:22→18:06)
[2021-05-03] MEDS: ASCORBIC ACID 500 MG TABLET PO SCH (09:22)
[2021-05-03] MEDS: FLUTICASONE/VILANTEROL 1 EACH BLST.W.DEV INH SCH (09:30)
[2021-05-03 11:59] VITALS: BP 111/57
[2021-05-03 15:49] VITALS: BP 98/58
[2021-05-03 20:25] VITALS: BP 98/50
--- NOTE | 2021-05-03 21:46 | NUR ---
Received resident awake sitting upright on bed. On continuous high flow O2 at 40L, saturating 93-95%. Midline on VIVIENNE not working. Pt refused peripheral IV insertion, claims he is hardstick and wants a midline insertion instead. Charge nurse informed. Pt noted with occasional coughing, Robitussin PRN given and tolerated well. Encouraged and offered fluid intake as tolerated. All needs attended. Call light placed within reach. Will continue to monitor.
[2021-05-04 00:30] VITALS: BP 96/52
[2021-05-04] MEDS: GUAIFENESIN/CODEINE 5 ML LIQUID UDC PO PRN ×3 (02:51→20:40)
[2021-05-04 04:25] VITALS: BP 96/54
[2021-05-04] MEDS: PANTOPRAZOLE SODIUM 40 MG TABLET.DR PO SCH (06:02)
[2021-05-04] MEDS: DEXAMETHASONE SOD PHOSPHATE 4 MG INJ IV SCH ×3 (06:02→20:53)
--- NOTE | 2021-05-04 06:25 | NUR ---
Pt slept intermittently throughout the night. On continuous high flow O2 at 40L, saturating 93-95%. Midline on VIVIENNE working fixed by RN financial supervisor. Decadron IV given and tolerated well. Pt still noted with occasional coughing, Robitussin PRN given. Encouraged and offered fluid intake as tolerated. Urinal and commode at bedside. All needs attended. Call light placed within reach. Frequent visual check done. Will endorse to next shift for continuity of care.
--- NOTE | 2021-05-04 07:30 | NUR ---
Received patient in bed awake alert and oriented times 4. Patient is on high flow oxygen 40L, saturating between 90-95. Patient is not in distress at this time. Safety measures are in place with call light and belongings within reach. Will continue to monitor.
[2021-05-04] MEDS: CHOLECALCIFEROL 1,000 UNIT TABLET PO SCH (08:22)
[2021-05-04] MEDS: METFORMIN HCL 500 MG TABLET PO SCH ×2 (08:22→18:11)
[2021-05-04] MEDS: FLUTICASONE/VILANTEROL 1 EACH BLST.W.DEV INH SCH (08:22)
[2021-05-04] MEDS: ASCORBIC ACID 500 MG TABLET PO SCH (08:22)
[2021-05-04] MEDS: APIXABAN 5 MG TABLET PO SCH ×2 (08:26→21:00)
[2021-05-04 11:57] VITALS: BP 98/57
[2021-05-04 15:33] VITALS: BP 107/63
[2021-05-04 20:32] VITALS: BP 110/60
--- NOTE | 2021-05-04 22:17 | NUR ---
Received pt sitting at edge of bed texting on the phone. AXo 4, able to make needs known. Denies pain or discomfort at the moment. Denies SOB. no distress noted. on high flow 40lpm 100% saturating @ 90-93%. Complain of cough, given Robitussin AC 10ml per order and effective. VSS pt remains Afebrile. NSR on tele. Left Upper arm Midline flushed, intact and patent. All due medications administered and tolerated well. COVID precaution and safety measures maintained. Needs attended too promptly. Call light and all personal items within reached. will continue to monitor through the night.
[2021-05-05 00:10] VITALS: BP 105/69
[2021-05-05 04:41] VITALS: BP 114/69
[2021-05-05] MEDS: DEXAMETHASONE SOD PHOSPHATE 4 MG INJ IV SCH ×3 (05:50→22:13)
[2021-05-05] MEDS: PANTOPRAZOLE SODIUM 40 MG TABLET.DR PO SCH (05:50)
[2021-05-05] MEDS: GUAIFENESIN/CODEINE 5 ML LIQUID UDC PO PRN ×4 (05:50→21:44)
[2021-05-05 05:57] LABS: HEMATOCRIT 46.2 % (36.7-47.1); MEAN CORPUSCULAR HEMOGLOBIN 30.6 uug (23.8-33.4); MEAN CORPUSCULAR VOLUME 90.9 fL (73.0-96.2); PLATELET COUNT (AUTO) 220 K/uL (152-348)
[2021-05-05 06:43] LABS: CARBON DIOXIDE 26 mmol/L (21-32); CHLORIDE 103 mmol/L (98-107); CREATININE 0.9 mg/dL (0.6-1.3); GLUCOSE 154 mg/dL (74-106); MAGNESIUM 2.6 mg/dL (1.8-2.4); PHOSPHOROUS 4.5 mg/dL (2.5-4.9); POTASSIUM 4.5 mmol/L (3.5-5.1); UREA NITROGEN, BLOOD 25 mg/dL (7-18)
--- NOTE | 2021-05-05 07:36 | NUR ---
received awake resting in bed. on high flow nc 40 lpm 100% oxygen. on continuous pulse ox noted 94%. denies sob. stated he feels the same. denies pain. safety precautions in place. call light in reach. will continue to monitor.
[2021-05-05] MEDS: METFORMIN HCL 500 MG TABLET PO SCH ×2 (08:30→17:15)
[2021-05-05] MEDS: CHOLECALCIFEROL 1,000 UNIT TABLET PO SCH (08:31)
[2021-05-05] MEDS: ASCORBIC ACID 500 MG TABLET PO SCH (08:31)
[2021-05-05] MEDS: APIXABAN 5 MG TABLET PO SCH ×2 (09:12→20:11)
[2021-05-05] MEDS: FLUTICASONE/VILANTEROL 1 EACH BLST.W.DEV INH SCH (09:16)
[2021-05-05 11:22] VITALS: BP 102/60
--- NOTE | 2021-05-05 11:40 | NUR ---
gave update to ambar yu
--- NOTE | 2021-05-05 12:43 | NUR ---
pt tends to desat when he has a coughing fit. at this time pt is sitting at edge of bed, eating lunch spo2 88-91%. refused non rebreather mask stated he's ok. denies sob/chest pain. will cont to monitor. Addendum: 05/05/21 at 1247 by DOMINGUEZ MONTOYA RN cough medicine was given and he states relief.
[2021-05-05 15:25] VITALS: BP 96/55
--- NOTE | 2021-05-05 16:31 | NUR ---
resting in bed. no s/sx of pain or resp distress. spo2 94-95%.
--- NOTE | 2021-05-05 17:30 | NUR ---
RT PT WAS NOT TITRATED DOWN DUE TO FLUCTUATING SPO2 DUE TO PT POSITION, PT IS COMFORTABLE AT THIS TIME AND TOLERATION HIGH FLOW SETTING NO CHANGES MADE AMF MECHANIC AND RN AWARE. WATER BAG CHANGED NO NRB NEEDED AT THIS TIME. NO ABG WAS ORDER DURING SHIFT. SPO2 95%
--- NOTE | 2021-05-05 19:30 | NUR ---
RECEIVED PT AWAKE, ALERT AND ORIENTEDX4. PT IN NO ACUTE DISTRESS. IV INTACT. SAFETY AND COMFORT PROVIDED. WILL CONTINUE TO MONITOR.
[2021-05-05 19:39] VITALS: BP 110/55
[2021-05-05] MEDS: IBUPROFEN 400 MG TABLET PO PRN (20:08)
[2021-05-06 00:09] VITALS: BP 108/59
[2021-05-06] MEDS: GUAIFENESIN/CODEINE 5 ML LIQUID UDC PO PRN ×2 (04:11→16:21)
[2021-05-06 05:02] VITALS: BP 109/60
[2021-05-06] MEDS: DEXAMETHASONE SOD PHOSPHATE 4 MG INJ IV SCH ×3 (05:12→21:09)
[2021-05-06] MEDS: IBUPROFEN 400 MG TABLET PO PRN ×2 (05:26→12:36)
--- NOTE | 2021-05-06 05:52 | NUR ---
PT IN NO ACUTE DISTRESS. PRESCRIBED MEDICATION GIVEN AND PT TOLERATED IT WELL.PT ON HIGH FLOW OXYGEN. PT ON SINUS RHYTHM.GIVEN MOTRIN 400MG AT 2008H PRN. PT GIVEN PRN ROBITUSSIN AC PRN ON 2143H AND 410H. SAFETY AND COMFORT PROVIDED.ALL NEEDS ARE MET.WILL ENDORSE TO INCOMING NURSE FOR CONTINUITY OF CARE.
[2021-05-06] MEDS: PANTOPRAZOLE SODIUM 40 MG TABLET.DR PO SCH (06:09)
--- NOTE | 2021-05-06 06:10 | NUR ---
at 0526h Motrin prn given for pt. Pt tolerated it well. Pt in no acute distress. Will continue to monitor.
[2021-05-06] MEDS: METFORMIN HCL 500 MG TABLET PO SCH ×2 (08:47→17:24)
[2021-05-06] MEDS: ASCORBIC ACID 500 MG TABLET PO SCH (08:48)
[2021-05-06] MEDS: CHOLECALCIFEROL 1,000 UNIT TABLET PO SCH (08:48)
[2021-05-06] MEDS: APIXABAN 5 MG TABLET PO SCH ×2 (08:51→21:22)
[2021-05-06] MEDS: FLUTICASONE/VILANTEROL 1 EACH BLST.W.DEV INH SCH (09:02)
[2021-05-06 10:11] LABS: HEMATOCRIT 46.2 % (36.7-47.1); MEAN CORPUSCULAR HEMOGLOBIN 30.4 uug (23.8-33.4); MEAN CORPUSCULAR VOLUME 91.2 fL (73.0-96.2); PLATELET COUNT (AUTO) 202 K/uL (152-348)
[2021-05-06 10:28] LABS: CREATININE 0.9 mg/dL (0.6-1.3); POTASSIUM 4.5 mmol/L (3.5-5.1)
[2021-05-06 12:00] VITALS: BP 103/52
[2021-05-06 16:00] VITALS: BP 99/58
[2021-05-06] MEDS: ACETAMINOPHEN 325 MG TABLET PO PRN (18:27)
--- NOTE | 2021-05-06 18:44 | NUR ---
Patient continue high flow oxygen 40liters with FiO2 100%, not in distress. Patient continue pain management for headache and dizziness. Patient for chest x-ray and lab works tomorrow. Patient sinus rhythm in monitoring. will continue monitor
--- NOTE | 2021-05-06 19:45 | NUR ---
PATIENT ALERT ORIENTED, NO SOB NO CHEST PAIN, ON HIGH FLOW OXYGEN 40 LITERS SAT 96 TO 100%, NO COMPLAIN OF PAIN, CONT ON DROPLET PRECAUTION, CONT TO MONITOR.
[2021-05-06 20:00] VITALS: BP 101/61
[2021-05-06 23:51] LABS: HEPATITIS B SURFACE AG Negative
[2021-05-06 23:52] LABS: CRYPTOCOCCUS AB, SERUM Negative; MYCOPLASMA PNEUMONIAE IgG <100
[2021-05-06 23:53] LABS: MYCOPLASMA PNEUMONIAE IgM <770
[2021-05-07] VITALS: BP 122/72
--- NOTE | 2021-05-07 03:59 | NUR ---
PATIENT REFUSED HIGH FLOW OXYGEN, ON NON REBREATHER MASK NOW AT 15LITERS SAT, 96%, PER RT. CONT TO MONITOR.
[2021-05-07 04:00] VITALS: BP 106/58
[2021-05-07] MEDS: PANTOPRAZOLE SODIUM 40 MG TABLET.DR PO SCH (06:05)
[2021-05-07] MEDS: DEXAMETHASONE SOD PHOSPHATE 4 MG INJ IV SCH ×3 (06:05→21:31)
--- NOTE | 2021-05-07 07:05 | NUR ---
PATIENT ALERT ORIENTED, NO SOB NO CHEST PAIN, CONT ON 15 LITERS NON REBREATER MASK TOLERATE WELL, OXYGEN SAT 97%, WITH DRY COUGH, TELE MONITOR SINUS RHYTHM SINUS TACHY AT TIMES.
--- NOTE | 2021-05-07 08:00 | NUR ---
PT alert and oriented x 4 pt on 15 liters simple mask with sat of 94%. Encourage pt to use IS and to prone position. Pt states that going prone is hard for him. Discussed the importance and benefits of going prone position to help drain his lungs. PT denies any c/o pain.
[2021-05-07] MEDS: CHOLECALCIFEROL 1,000 UNIT TABLET PO SCH (08:48)
[2021-05-07] MEDS: METFORMIN HCL 500 MG TABLET PO SCH ×2 (08:48→16:45)
[2021-05-07] MEDS: ASCORBIC ACID 500 MG TABLET PO SCH (08:48)
[2021-05-07 08:50] VITALS: BP 114/68
[2021-05-07] MEDS: APIXABAN 5 MG TABLET PO SCH ×2 (08:51→20:30)
[2021-05-07] MEDS: FLUTICASONE/VILANTEROL 1 EACH BLST.W.DEV INH SCH (08:51)
[2021-05-07] MEDS: GUAIFENESIN/CODEINE 5 ML LIQUID UDC PO PRN ×3 (10:23→23:48)
[2021-05-07 11:18] VITALS: BP 118/69
[2021-05-07] MEDS: FAMOTIDINE 20 MG TABLET PO SCH (13:07)
[2021-05-07 15:44] VITALS: BP 102/54
[2021-05-07] MEDS: ALBUTEROL SULFATE 8 GM HFA.AER.AD IH PRN (16:29)
--- NOTE | 2021-05-07 18:30 | NUR ---
Pt's cough managed with Robitussin. Pt states that his coughing less and medication is effective.
[2021-05-07 20:23] VITALS: BP 111/67
--- NOTE | 2021-05-07 20:25 | NUR ---
Patient in bed alert x4.Denies pain .On 15 L nonbreather mask saturating at 98 %.Midline on left upper arm patent and intact.Adm med as ordered.Patient noted with swelling on margo lower leg +2.No skin breakdown.No redness. Dr Brewer Notified with NO.VSS.Will continue to monitor.
[2021-05-08 00:09] VITALS: BP 100/50
[2021-05-08 04:06] VITALS: BP 98/50
[2021-05-08] MEDS: DEXAMETHASONE SOD PHOSPHATE 4 MG INJ IV SCH ×3 (05:33→21:00)
[2021-05-08] MEDS: GUAIFENESIN/CODEINE 5 ML LIQUID UDC PO PRN ×4 (05:44→20:57)
[2021-05-08] MEDS: PANTOPRAZOLE SODIUM 40 MG TABLET.DR PO SCH (06:00)
[2021-05-08] MEDS: METFORMIN HCL 500 MG TABLET PO SCH ×2 (08:54→17:06)
[2021-05-08] MEDS: CHOLECALCIFEROL 1,000 UNIT TABLET PO SCH (08:55)
[2021-05-08] MEDS: FLUTICASONE/VILANTEROL 1 EACH BLST.W.DEV INH SCH (08:55)
[2021-05-08] MEDS: FAMOTIDINE 20 MG TABLET PO SCH (08:55)
[2021-05-08] MEDS: ASCORBIC ACID 500 MG TABLET PO SCH (08:55)
[2021-05-08] MEDS: APIXABAN 5 MG TABLET PO SCH ×2 (08:58→20:58)
[2021-05-08 11:58] VITALS: BP 111/56
[2021-05-08 15:43] VITALS: BP 100/60
--- NOTE | 2021-05-08 20:00 | NUR ---
Received patient lying in bed. HOB elevated. AAOx4. Denies any pain or SOB. On O2 at 15LPM via non-rebreather mask. NSR on tele at 75/min. Midline on left upper arm intact and patent. COVID isolation observed. Needs assessed and attended to. Safety measure initiated and call berry within reached.
[2021-05-08 20:25] VITALS: BP 109/59
[2021-05-09 00:15] VITALS: BP 107/59
[2021-05-09 04:30] VITALS: BP 127/86
[2021-05-09] MEDS: PANTOPRAZOLE SODIUM 40 MG TABLET.DR PO SCH (06:07)
[2021-05-09] MEDS: DEXAMETHASONE SOD PHOSPHATE 4 MG INJ IV SCH ×2 (06:08→13:12)
[2021-05-09] MEDS: GUAIFENESIN/CODEINE 5 ML LIQUID UDC PO PRN ×2 (06:08→20:14)
--- NOTE | 2021-05-09 06:44 | NUR ---
AAOx4. Denies any pain or SOB. On O2 at 15LPM via non-rebreather mask. O2 sat at 98%. Robitussin AC 10ml po given for cough and effective. NSR on tele at 62/min. Midline on left upper arm intact and patent. COVID isolation maintained. Needs attended to and met. Safety measure maintained and call berry within reached.
[2021-05-09] MEDS: METFORMIN HCL 500 MG TABLET PO SCH ×2 (08:24→17:06)
[2021-05-09] MEDS: ASCORBIC ACID 500 MG TABLET PO SCH (08:24)
[2021-05-09] MEDS: FAMOTIDINE 20 MG TABLET PO SCH (08:25)
[2021-05-09] MEDS: CHOLECALCIFEROL 1,000 UNIT TABLET PO SCH (08:25)
[2021-05-09] MEDS: APIXABAN 5 MG TABLET PO SCH ×2 (08:26→20:40)
[2021-05-09] MEDS: FLUTICASONE/VILANTEROL 1 EACH BLST.W.DEV INH SCH (08:27)
[2021-05-09 11:30] VITALS: BP 91/51
[2021-05-09 15:44] VITALS: BP 95/61
--- NOTE | 2021-05-09 18:37 | NUR ---
Patient resting in bed. AOx4. On 15lpm O2 via nonrebreather mask, saturating at 96%. Patient denies pain/ discomfort. NSR on food supervisor, rate at 94. Midline intact and patent. Patient compliant with medications and care. Needs anticipated and met. Safety measures provided. Call light within reach. Bed alarm on for safety. Will endorse to incoming shift for continuity of care.
[2021-05-09 20:35] VITALS: BP 97/56
[2021-05-10 00:20] VITALS: BP 102/41
[2021-05-10] MEDS: ONDANSETRON ODT 4 MG TAB.RAPDIS SL PRN (04:11)
[2021-05-10] MEDS: GUAIFENESIN/CODEINE 5 ML LIQUID UDC PO PRN ×2 (04:11→16:45)
[2021-05-10 04:40] VITALS: BP 94/66
[2021-05-10] MEDS: PANTOPRAZOLE SODIUM 40 MG TABLET.DR PO SCH (06:55)
--- NOTE | 2021-05-10 06:55 | NUR ---
Pt slept intermittently throughout the night. Coughs controlled with Robitussin. Patient will sit at edge of bed when coughing and tends to desat to 85% when coughing, otherwise sats at 93-95% on 15L. Denies chest pain or SOB at this time. IV site intact. Safety and comfort provided. No other issues or concerns at this time, will endorse to day shift.
[2021-05-10] MEDS: ASCORBIC ACID 500 MG TABLET PO SCH (08:31)
[2021-05-10] MEDS: FAMOTIDINE 20 MG TABLET PO SCH (08:31)
[2021-05-10] MEDS: METFORMIN HCL 500 MG TABLET PO SCH ×2 (08:31→17:36)
[2021-05-10] MEDS: DEXAMETHASONE SOD PHOSPHATE 4 MG INJ IV SCH (08:32)
[2021-05-10] MEDS: CHOLECALCIFEROL 1,000 UNIT TABLET PO SCH (08:32)
[2021-05-10] MEDS: APIXABAN 5 MG TABLET PO SCH ×2 (08:34→20:52)
[2021-05-10] MEDS: ALBUTEROL SULFATE 8 GM HFA.AER.AD IH PRN (08:36)
[2021-05-10] MEDS: FLUTICASONE/VILANTEROL 1 EACH BLST.W.DEV INH SCH (09:07)
[2021-05-10 09:08] VITALS: BP 106/54
[2021-05-10 11:00] VITALS: BP 115/65
[2021-05-10] MEDS: BENZONATATE 100 MG CAPSULE PO SCH ×3 (12:17→22:31)
[2021-05-10 15:22] VITALS: BP 123/73
--- NOTE | 2021-05-10 18:42 | NUR ---
Pt stable throughout the shift. Denies any acute distress. Kept on 15L NRB, tolerating well. Consistent non productive cough. PRN medications given. Safety and isolation precaution maintained. Will endorse to oncoming nurse.
[2021-05-10 20:15] VITALS: BP 98/54
[2021-05-11 00:12] VITALS: BP 106/63
--- NOTE | 2021-05-11 00:37 | NUR ---
Resting in bed upon initial rounds. AAOx4 Ambulates to the BR . BM this shift. On continous 15L NRB mask, pulse ox 94%. All needs attended. Patient on heart monitor, patient been on sinus rhythm HR 70's but has some periods pf being tachy especially when he goes to the BR. Patient asymptomatic.
[2021-05-11 04:18] VITALS: BP 101/56
[2021-05-11] MEDS: BENZONATATE 100 MG CAPSULE PO SCH ×3 (05:38→21:01)
[2021-05-11 06:06] LABS: HEMATOCRIT 44.3 % (36.7-47.1); MEAN CORPUSCULAR HEMOGLOBIN 30.6 uug (23.8-33.4); PLATELET COUNT (AUTO) 197 K/uL (152-348)
[2021-05-11 06:14] LABS: CARBON DIOXIDE 31 mmol/L (21-32); CHLORIDE 100 mmol/L (98-107); CREATININE 0.7 mg/dL (0.6-1.3); GLUCOSE 82 mg/dL (74-106); MAGNESIUM 2.4 mg/dL (1.8-2.4); POTASSIUM 4.4 mmol/L (3.5-5.1); UREA NITROGEN, BLOOD 19 mg/dL (7-18)
[2021-05-11] MEDS: PANTOPRAZOLE SODIUM 40 MG TABLET.DR PO SCH (06:15)
[2021-05-11] MEDS: CHOLECALCIFEROL 1,000 UNIT TABLET PO SCH (08:07)
[2021-05-11] MEDS: DEXAMETHASONE SOD PHOSPHATE 4 MG INJ IV SCH (08:07)
[2021-05-11] MEDS: APIXABAN 5 MG TABLET PO SCH ×2 (08:09→21:00)
[2021-05-11] MEDS: ASCORBIC ACID 500 MG TABLET PO SCH (08:09)
[2021-05-11] MEDS: METFORMIN HCL 500 MG TABLET PO SCH ×2 (08:09→17:10)
[2021-05-11] MEDS: FAMOTIDINE 20 MG TABLET PO SCH (08:09)
[2021-05-11] MEDS: FLUTICASONE/VILANTEROL 1 EACH BLST.W.DEV INH SCH (08:10)
--- NOTE | 2021-05-11 08:15 | NUR ---
RECEIVED PATIENT IN BED AWAKE ALERT AND ORIENTED ON 15 LITERS NON REBREATHER MASK WITH SATS AT 93-94 PERCENT DENIES SHORTNESS OF BREATH AT THIS TIME.LEFT UPPER ARM MIDLINE IS INTACT REMAIN ON COVID ISOLATION AND PRECAUTION CALL LIGHTS AND PERSONAL BELONGINGS ARE WITHIN EASY REACH WILL CONTINUE TO OBSERVE.
[2021-05-11 12:00] VITALS: BP 100/55
--- NOTE | 2021-05-11 12:00 | NUR ---
SEEN BY SARI FULLER WITH NEW LAB ORDERS AND NOTED.
[2021-05-11 16:14] VITALS: BP 98/54
--- NOTE | 2021-05-11 18:00 | NUR ---
REMAIN ON COVID ISOLATION AND PRECAUTION ORDERED WITH NRM O2 WITH SOBE ENCOURAGED TO RELAX AND TAKE IT EASY.
[2021-05-11 20:55] VITALS: BP 124/69
[2021-05-12 00:37] VITALS: BP 106/50
[2021-05-12 04:58] VITALS: BP 117/64
--- NOTE | 2021-05-12 05:22 | NUR ---
Pt slept intermittently throughout the night. Denies pain or SOB at this time. Satting 95-97% pm 15L but desats when repositioning or when ambulating to restroom. IV site is intact. No other issues or concerns at this time, will endorse to day shift.
[2021-05-12] MEDS: BENZONATATE 100 MG CAPSULE PO SCH ×3 (06:00→21:03)
[2021-05-12] MEDS: GUAIFENESIN/CODEINE 5 ML LIQUID UDC PO PRN ×3 (06:06→16:28)
[2021-05-12] MEDS: PANTOPRAZOLE SODIUM 40 MG TABLET.DR PO SCH (06:07)
[2021-05-12] MEDS: ALBUTEROL SULFATE 8 GM HFA.AER.AD IH PRN (06:10)
[2021-05-12 06:28] LABS: HEMATOCRIT 44.2 % (36.7-47.1); MEAN CORPUSCULAR HEMOGLOBIN 30.5 uug (23.8-33.4); MEAN CORPUSCULAR VOLUME 91.3 fL (73.0-96.2); PLATELET COUNT (AUTO) 199 K/uL (152-348)
[2021-05-12 06:42] LABS: CARBON DIOXIDE 30 mmol/L (21-32); CHLORIDE 99 mmol/L (98-107); CREATININE 0.6 mg/dL (0.6-1.3); GLUCOSE 82 mg/dL (74-106); MAGNESIUM 2.3 mg/dL (1.8-2.4); UREA NITROGEN, BLOOD 15 mg/dL (7-18)
--- NOTE | 2021-05-12 06:52 | NUR ---
Pt refuses to take ailyn rivas
--- NOTE | 2021-05-12 08:00 | NUR ---
RECEIVED PATIENT ALERT AND ORIENTED X3 SITTING ON THE SIDE OF BED WITH ON AND OFF DRY TO PRODUCTIVE COUGH TOLERATING 15L NRM SATURATING 95%. CONTINUE WITH CURRENT MEDICATION ORDERED SR ON MONITOR
[2021-05-12] MEDS: CHOLECALCIFEROL 1,000 UNIT TABLET PO SCH (08:04)
[2021-05-12] MEDS: METFORMIN HCL 500 MG TABLET PO SCH ×2 (08:05→17:29)
[2021-05-12] MEDS: ACETAMINOPHEN 325 MG TABLET PO PRN (08:05)
[2021-05-12] MEDS: FAMOTIDINE 20 MG TABLET PO SCH (08:05)
[2021-05-12] MEDS: DEXAMETHASONE SOD PHOSPHATE 4 MG INJ IV SCH (08:05)
[2021-05-12] MEDS: ASCORBIC ACID 500 MG TABLET PO SCH (08:05)
[2021-05-12] MEDS: FLUTICASONE/VILANTEROL 1 EACH BLST.W.DEV INH SCH (08:06)
[2021-05-12] MEDS: APIXABAN 5 MG TABLET PO SCH ×2 (08:06→20:40)
[2021-05-12 09:24] VITALS: BP 107/61
--- NOTE | 2021-05-12 09:57 | NUR ---
SEEN BY YEAST TENDER FOR FOLLOW-UP SEE NOTES
[2021-05-12 11:45] VITALS: BP 107/55
[2021-05-12 15:55] VITALS: BP 94/46
[2021-05-12 20:12] VITALS: BP 95/50
[2021-05-13 00:42] VITALS: BP 104/58
[2021-05-13 04:15] VITALS: BP 103/48
--- NOTE | 2021-05-13 05:41 | NUR ---
Pt slept throughout the night. Denies SOB or chest pain. Able to make needs known. IV site is intact. Pt still on 15L NRM satting at 93%. No distress noted. No other issues or concerns at this time, will endorse to day shift.
[2021-05-13] MEDS: BENZONATATE 100 MG CAPSULE PO SCH ×3 (06:00→21:28)
[2021-05-13] MEDS: GUAIFENESIN/CODEINE 5 ML LIQUID UDC PO PRN ×3 (06:18→21:59)
[2021-05-13] MEDS: PANTOPRAZOLE SODIUM 40 MG TABLET.DR PO SCH (06:18)
[2021-05-13] MEDS: METFORMIN HCL 500 MG TABLET PO SCH ×2 (08:00→17:14)
[2021-05-13] MEDS: FLUTICASONE/VILANTEROL 1 EACH BLST.W.DEV INH SCH (09:00)
[2021-05-13] MEDS: DEXAMETHASONE SOD PHOSPHATE 4 MG INJ IV SCH (09:00)
[2021-05-13] MEDS: CHOLECALCIFEROL 1,000 UNIT TABLET PO SCH (10:03)
[2021-05-13] MEDS: FAMOTIDINE 20 MG TABLET PO SCH (10:04)
[2021-05-13] MEDS: ASCORBIC ACID 500 MG TABLET PO SCH (10:04)
[2021-05-13] MEDS: APIXABAN 5 MG TABLET PO SCH ×2 (10:09→21:28)
[2021-05-13 12:00] VITALS: BP 126/69
--- NOTE | 2021-05-13 12:05 | NUR ---
o2 sat 86% on r/a @ rest
[2021-05-13 16:00] VITALS: BP 98/48
--- NOTE | 2021-05-13 18:04 | NUR ---
Pt is a/o x 4, sinus tachy. He is on 15L non rebreather. Pt is ambulatory with brp but also uses urinal/ bedside commode. Pt has L upper arm IV access but currently not receiving any fluids or medication via IV. Pt still has cough and SOB, receiving breathing treatments with RT. MRSA swab test performed and sent to lab. Pt is cooperative and compliant with tx.
--- NOTE | 2021-05-13 19:45 | NUR ---
PATIENT ALERT ORIENTED, NO CHEST PAIN, ON 15 LITERS NON REBREATHER SAT 98%, WITH NON PRODUCTIVE COUGH, NO COMPLAIN OF PAIN, REMAINS ON DROPLET PRECAUTIONS, CONT TO MONITOR.
[2021-05-13 20:18] VITALS: BP 95/50
--- NOTE | 2021-05-13 22:00 | NUR ---
PATIENT HAS EPISODE OF NON PRODUCTIVE COUGH, GIVEN COUGH MEDS ORDERED, CONT TO MONITOR.
[2021-05-14] VITALS: BP 90/47
[2021-05-14] MEDS: GUAIFENESIN/CODEINE 5 ML LIQUID UDC PO PRN ×2 (03:18→12:23)
[2021-05-14 04:00] VITALS: BP 101/52
[2021-05-14] MEDS: BENZONATATE 100 MG CAPSULE PO SCH ×3 (05:42→21:10)
--- NOTE | 2021-05-14 05:57 | NUR ---
PATIENT AWAKE ALERT NO SOB NO CHEST PAIN, STILL ON 15 LITER NON REBREATHER MASK SAT 99 100%, PATIENT STILL NON PRODUCTIVE COUGH, ROBITUSSIN WITH CODEINE COUGH SYRUP WITH EFFECTIVE RESULTS REMAIN ON DROPLET PRECAUTIONS CONT TO MONITOR.
[2021-05-14] MEDS: PANTOPRAZOLE SODIUM 40 MG TABLET.DR PO SCH (06:21)
[2021-05-14 06:49] LABS: HEMATOCRIT 42.3 % (36.7-47.1); MEAN CORPUSCULAR HEMOGLOBIN 30.8 uug (23.8-33.4); MEAN CORPUSCULAR VOLUME 90.9 fL (73.0-96.2); PLATELET COUNT (AUTO) 189 K/uL (152-348)
[2021-05-14 07:05] LABS: CARBON DIOXIDE 30 mmol/L (21-32); CHLORIDE 98 mmol/L (98-107); CREATININE 0.6 mg/dL (0.6-1.3); GLUCOSE 77 mg/dL (74-106); MAGNESIUM 2.4 mg/dL (1.8-2.4); POTASSIUM 3.8 mmol/L (3.5-5.1); UREA NITROGEN, BLOOD 14 mg/dL (7-18)
[2021-05-14] MEDS: METFORMIN HCL 500 MG TABLET PO SCH ×2 (08:19→17:12)
[2021-05-14] MEDS: APIXABAN 5 MG TABLET PO SCH ×2 (08:20→21:27)
[2021-05-14] MEDS: FAMOTIDINE 20 MG TABLET PO SCH (08:43)
[2021-05-14] MEDS: ASCORBIC ACID 500 MG TABLET PO SCH (08:43)
[2021-05-14] MEDS: CHOLECALCIFEROL 1,000 UNIT TABLET PO SCH (08:43)
[2021-05-14] MEDS: DEXAMETHASONE SOD PHOSPHATE 4 MG INJ IV SCH (08:44)
[2021-05-14] MEDS: FLUTICASONE/VILANTEROL 1 EACH BLST.W.DEV INH SCH (08:46)
[2021-05-14 11:59] VITALS: BP 108/60
[2021-05-14] MEDS: LEVALBUTEROL HCL NEB 0.63 MG/3 ML NEBU NEB PRN ×2 (14:47→19:51)
[2021-05-14] MEDS: IPRATROPIUM BROMIDE 0.5 MG/2.5 ML NEBU NEB PRN ×2 (14:47→19:51)
[2021-05-14 16:00] VITALS: BP 106/51
--- NOTE | 2021-05-14 19:30 | NUR ---
Received patient sitting up in bed. AAOx4. Denies any pain, cough or SOB noted at this time. On O2 at 15LPM via non-rebreather mask. O2 sat at 98% at this time. Sinus tachy on tele at 103/min. Midline in left upper arm intact and patent. Needs assessed and attended to. COVID precaution observed. Safety measure initiated and call berry within reached.
[2021-05-14 20:25] VITALS: BP 116/79
[2021-05-15] MEDS: GUAIFENESIN/CODEINE 5 ML LIQUID UDC PO PRN ×2 (00:11→12:28)
[2021-05-15 00:35] VITALS: BP 108/67
[2021-05-15] MEDS: IPRATROPIUM BROMIDE 0.5 MG/2.5 ML NEBU NEB PRN ×4 (02:00→20:00)
[2021-05-15] MEDS: LEVALBUTEROL HCL NEB 0.63 MG/3 ML NEBU NEB PRN ×4 (02:00→20:00)
[2021-05-15 04:35] VITALS: BP 126/80
[2021-05-15] MEDS: PANTOPRAZOLE SODIUM 40 MG TABLET.DR PO SCH (06:11)
[2021-05-15] MEDS: BENZONATATE 100 MG CAPSULE PO SCH ×3 (06:11→22:14)
[2021-05-15 06:13] LABS: HEMATOCRIT 43.2 % (36.7-47.1); MEAN CORPUSCULAR HEMOGLOBIN 30.9 uug (23.8-33.4); MEAN CORPUSCULAR VOLUME 91.1 fL (73.0-96.2); PLATELET COUNT (AUTO) 172 K/uL (152-348)
--- NOTE | 2021-05-15 06:26 | NUR ---
AAOx4. Denies any pain or SOB. On O2 at 15LPM via non-rebreather mask. O2 sat at 96% at this time. Robitussin AC 10ml PO PRN per order given for cough and effective. NSR on tele at 70/min. Midline in left upper arm intact and patent. Needs attended to and met. COVID precaution maintained. Safety measure maintained and call berry within reached.
[2021-05-15 06:29] LABS: CARBON DIOXIDE 27 mmol/L (21-32); CHLORIDE 95 mmol/L (98-107); CREATININE 0.6 mg/dL (0.6-1.3); GLUCOSE 87 mg/dL (74-106); POTASSIUM 3.7 mmol/L (3.5-5.1); UREA NITROGEN, BLOOD 13 mg/dL (7-18)
--- NOTE | 2021-05-15 08:00 | NUR ---
alert/oriented x 4, on NRB 15L with sat 94 %, on continuous pulse oximetry, denies of pain, states feels fine, needs attended, safety measures maintained, call light within reach
[2021-05-15] MEDS: METFORMIN HCL 500 MG TABLET PO SCH ×2 (08:52→17:06)
[2021-05-15] MEDS: DEXAMETHASONE SOD PHOSPHATE 4 MG INJ IV SCH (08:53)
[2021-05-15] MEDS: CHOLECALCIFEROL 1,000 UNIT TABLET PO SCH (08:53)
[2021-05-15] MEDS: ASCORBIC ACID 500 MG TABLET PO SCH (08:54)
[2021-05-15] MEDS: FAMOTIDINE 20 MG TABLET PO SCH (08:54)
[2021-05-15] MEDS: APIXABAN 5 MG TABLET PO SCH ×2 (08:55→20:37)
[2021-05-15] MEDS: FLUTICASONE/VILANTEROL 1 EACH BLST.W.DEV INH SCH (08:56)
[2021-05-15 12:00] VITALS: BP 102/57
--- NOTE | 2021-05-15 12:28 | NUR ---
medicated for cough with Robitussin as ordered
[2021-05-15 14:43] LABS: EOSINOPHILS % (MANUAL) 3 % (0-8); LYMPHOCYTES % (MANUAL) 12 % (20-40); MONOCYTES % (MANUAL) 15 % (2-10); NEUTROPHILS % (MANUAL) 70 % (42-75)
[2021-05-15 16:00] VITALS: BP 95/49
--- NOTE | 2021-05-15 18:04 | NUR ---
remains on NRB 15L- SAT AT 95 %, all needs attended and met, call light within reach
[2021-05-15 20:25] VITALS: BP 114/61
--- NOTE | 2021-05-15 22:35 | NUR ---
Received pt on awake on bed, on NRB 15L - saturating at 93-94% at rest. Alert and oriented x4, able to make needs known. Denies pain and discomfort at this time. Due medication given and tolerated well. All needs attended. Call light placed within reach. Will continue to monitor.
[2021-05-16 00:25] VITALS: BP 108/76
[2021-05-16] MEDS: GUAIFENESIN/CODEINE 5 ML LIQUID UDC PO PRN ×3 (00:38→11:16)
[2021-05-16] MEDS: BENZONATATE 100 MG CAPSULE PO SCH ×3 (05:07→21:25)
[2021-05-16 05:25] VITALS: BP 104/56
[2021-05-16] MEDS: PANTOPRAZOLE SODIUM 40 MG TABLET.DR PO SCH (06:22)
[2021-05-16 06:25] LABS: HEMATOCRIT 42.4 % (36.7-47.1); MEAN CORPUSCULAR HEMOGLOBIN 30.5 uug (23.8-33.4); MEAN CORPUSCULAR VOLUME 91.3 fL (73.0-96.2); PLATELET COUNT (AUTO) 174 K/uL (152-348)
[2021-05-16 07:32] LABS: CARBON DIOXIDE 32 mmol/L (21-32); CHLORIDE 100 mmol/L (98-107); CREATININE 0.7 mg/dL (0.6-1.3); FERRITIN 1421 ng/mL (26-388); GLUCOSE 83 mg/dL (74-106); LACTATE DEHYDROGENASE 545 U/L (85-227); MAGNESIUM 2.4 mg/dL (1.8-2.4); PHOSPHOROUS 4.5 mg/dL (2.5-4.9); UREA NITROGEN, BLOOD 13 mg/dL (7-18)
--- NOTE | 2021-05-16 07:42 | NUR ---
Pt slept intermittently throughout the night. On NRB 15L - saturating at 97-99%. Easily arousable for care, able to make needs known. Robitussin PRN given. All needs attended. Call light placed within reach. Will endorsed to next shift for continuity of care.
[2021-05-16] MEDS: IPRATROPIUM BROMIDE 0.5 MG/2.5 ML NEBU NEB PRN ×2 (08:26→13:52)
[2021-05-16] MEDS: LEVALBUTEROL HCL NEB 0.63 MG/3 ML NEBU NEB PRN ×2 (08:26→13:52)
[2021-05-16] MEDS: CHOLECALCIFEROL 1,000 UNIT TABLET PO SCH (08:40)
[2021-05-16] MEDS: DEXAMETHASONE SOD PHOSPHATE 4 MG INJ IV SCH (08:40)
[2021-05-16] MEDS: METFORMIN HCL 500 MG TABLET PO SCH ×2 (08:40→17:17)
[2021-05-16] MEDS: ASCORBIC ACID 500 MG TABLET PO SCH (08:41)
[2021-05-16] MEDS: FAMOTIDINE 20 MG TABLET PO SCH (08:41)
[2021-05-16] MEDS: APIXABAN 5 MG TABLET PO SCH ×2 (08:41→21:25)
[2021-05-16] MEDS: FLUTICASONE/VILANTEROL 1 EACH BLST.W.DEV INH SCH (08:42)
[2021-05-16 08:50] VITALS: BP 95/76
[2021-05-16 14:28] LABS: BAND % (MANUAL) 3 % (0-10); EOSINOPHILS % (MANUAL) 2 % (0-8); LYMPHOCYTES % (MANUAL) 12 % (20-40); MONOCYTES % (MANUAL) 19 % (2-10); NEUTROPHILS % (MANUAL) 64 % (42-75)
[2021-05-16 15:37] VITALS: BP 100/62
--- NOTE | 2021-05-16 17:54 | NUR ---
Pt stable throughout the shift. Denies any acute distress or pain at this time. Kept on NRB 15L,tolerating well. NSR on the monitor. Comfort care and needs attended. Isolation precaution maintained. Safety precautions in place. Chart checks done. Will endorse to oncoming nurse
[2021-05-16 20:30] VITALS: BP 97/61
[2021-05-17 00:32] VITALS: BP 114/57
[2021-05-17] MEDS: GUAIFENESIN/CODEINE 5 ML LIQUID UDC PO PRN (05:13)
[2021-05-17 05:36] VITALS: BP 108/68
[2021-05-17] MEDS: BENZONATATE 100 MG CAPSULE PO SCH ×3 (06:19→21:12)
[2021-05-17] MEDS: PANTOPRAZOLE SODIUM 40 MG TABLET.DR PO SCH (06:20)
--- NOTE | 2021-05-17 06:39 | NUR ---
Tolerating non re-breathable mask saturating 98% most of the time. Still with non productive cough. Medicated once for cough. Continue to monitor.
[2021-05-17 07:18] LABS: HEMATOCRIT 43.6 % (36.7-47.1); MEAN CORPUSCULAR HEMOGLOBIN 30.6 uug (23.8-33.4); MEAN CORPUSCULAR VOLUME 92.1 fL (73.0-96.2); PLATELET COUNT (AUTO) 171 K/uL (152-348)
[2021-05-17 07:34] LABS: CARBON DIOXIDE 31 mmol/L (21-32); CHLORIDE 98 mmol/L (98-107); CREATININE 0.6 mg/dL (0.6-1.3); GLUCOSE 91 mg/dL (74-106); MAGNESIUM 2.3 mg/dL (1.8-2.4); PHOSPHOROUS 4.5 mg/dL (2.5-4.9); UREA NITROGEN, BLOOD 15 mg/dL (7-18)
[2021-05-17] MEDS: CHOLECALCIFEROL 1,000 UNIT TABLET PO SCH (08:08)
[2021-05-17] MEDS: METFORMIN HCL 500 MG TABLET PO SCH ×2 (08:08→17:21)
[2021-05-17] MEDS: FAMOTIDINE 20 MG TABLET PO SCH (08:08)
[2021-05-17] MEDS: ASCORBIC ACID 500 MG TABLET PO SCH (08:08)
[2021-05-17] MEDS: APIXABAN 5 MG TABLET PO SCH ×2 (08:08→20:55)
[2021-05-17] MEDS: DEXAMETHASONE SOD PHOSPHATE 4 MG INJ IV SCH (08:12)
[2021-05-17] MEDS: FLUTICASONE/VILANTEROL 1 EACH BLST.W.DEV INH SCH (08:49)
[2021-05-17 12:00] VITALS: BP 95/63
[2021-05-17 14:17] LABS: EOSINOPHILS % (MANUAL) 2 % (0-8); LYMPHOCYTES % (MANUAL) 17 % (20-40); MONOCYTES % (MANUAL) 15 % (2-10); NEUTROPHILS % (MANUAL) 66 % (42-75)
[2021-05-17 16:08] VITALS: BP 114/58
[2021-05-17 20:20] VITALS: BP 130/57
[2021-05-17] MEDS: HYDROCODONE BIT/HOMATROPINE 5 ML UDC PO PRN (21:12)
--- NOTE | 2021-05-17 21:12 | NUR ---
PATIENT ALERT ORIENTED, NO SOB NO CHEST PAIN, TELE MONITOR SINUS RHYTHM, EPISODE OF SINUS TACHY DURING EXCERTION, ON 15 LITER NON REBREATHER SAT 96%, WITH EPISODE OF NON PRODUCTIVE COUGH, GIVEN MEDS ORDERED. CONT TO MONITOR.
[2021-05-18 00:04] VITALS: BP 133/65
[2021-05-18 04:21] VITALS: BP 134/83
--- NOTE | 2021-05-18 04:36 | NUR ---
PATIENT ASLEEP BUT AROUSABLE, NO SOB NO CHEST PAIN, SAT 96% ON 15 LITER NON REBREATHER MASK TOLERATE WELL. CONT TO MONITOR.
[2021-05-18] MEDS: BENZONATATE 100 MG CAPSULE PO SCH ×3 (06:10→22:33)
[2021-05-18] MEDS: PANTOPRAZOLE SODIUM 40 MG TABLET.DR PO SCH (06:11)
--- NOTE | 2021-05-18 07:30 | NUR ---
Received patient on continuous oxygen at 15L non-rebreather. Alert/oriented. Denies pain. noted with cough. IV line intact. kept call light within reach. Will continue to monitor.
[2021-05-18 08:00] VITALS: BP 105/72
[2021-05-18] MEDS: METFORMIN HCL 500 MG TABLET PO SCH ×2 (08:41→17:08)
[2021-05-18] MEDS: FAMOTIDINE 20 MG TABLET PO SCH (08:42)
[2021-05-18] MEDS: CHOLECALCIFEROL 1,000 UNIT TABLET PO SCH (08:42)
[2021-05-18] MEDS: ASCORBIC ACID 500 MG TABLET PO SCH (08:42)
[2021-05-18] MEDS: DEXAMETHASONE SOD PHOSPHATE 4 MG INJ IV SCH (08:42)
[2021-05-18] MEDS: FLUTICASONE/VILANTEROL 1 EACH BLST.W.DEV INH SCH (08:42)
[2021-05-18] MEDS: APIXABAN 5 MG TABLET PO SCH ×2 (08:42→20:48)
--- NOTE | 2021-05-18 10:23 | NUR ---
Contacted ID per Dr Dyer request. Called Dr Forrest's office regarding moving patient out of isolation. Per Cristy Nolasco is the transactional attorney today and will make rounds.
[2021-05-18 11:52] VITALS: BP 131/76
[2021-05-18 16:00] VITALS: BP 119/74
--- NOTE | 2021-05-18 18:00 | NUR ---
Patient remained stable. No distress identified. Denies pain during the shift. All needs attended. Due meds given as ordered. Dressing changed to midline, intact, flushing well, tolerated well. Will endorse to the next shift for continuity of care.
--- NOTE | 2021-05-18 19:30 | NUR ---
RECEIVED PT AWAKE, ALERT AND ORIENTEDX4. PT IN NO ACUTE DISTRESS. IV INTACT. PT ON 15L NONREBREATHER MASK. PT ON SINUS RHYTHM. SAFETY AND COMFORT PROVIDED. WILL CONTINUE TO MONITOR.
[2021-05-18] MEDS: ACETAMINOPHEN 325 MG TABLET PO PRN (19:58)
[2021-05-18] MEDS: HYDROCODONE BIT/HOMATROPINE 5 ML UDC PO PRN (19:59)
[2021-05-18 20:24] VITALS: BP 104/57
--- NOTE | 2021-05-18 20:30 | NUR ---
AT TYLENOL 650 MG AND HYDROMET SYRUP 5ML PRN GIVEN TO PT PER PT REQUEST. PT STABLE AND WILL CONTINUE TO MONITOR.
[2021-05-19 00:09] VITALS: BP 101/55
[2021-05-19 04:27] VITALS: BP 104/66
--- NOTE | 2021-05-19 06:03 | NUR ---
PT SLEPT INTERMITTENTLY. PT IN NO ACUTE DISTRESS. PRESCRIBED MEDICATION GIVEN AND PT TOLERATED IT WELL. PT ON SINUS RHYTHM. PT ON 15L NONREBREATHER MASK.IV INTACT. SAFETY AND COMFORT PROVIDED. ALL NEEDS ARE MET. WILL ENDORSE TO INCOMING NURSE FOR CONTINUITY OF CARE.
[2021-05-19] MEDS ORDERED: PANTOPRAZOLE SODIUM 40 MG TABLET.DR PO ONE (06:34)
[2021-05-19] MEDS ORDERED: BENZONATATE 100 MG CAPSULE ONE ×2 (06:35→07:04)
[2021-05-19 06:36] LABS: HEMATOCRIT 40.1 % (36.7-47.1); MEAN CORPUSCULAR VOLUME 91.4 fL (73.0-96.2); PLATELET COUNT (AUTO) 171 K/uL (152-348)
[2021-05-19] MEDS: PANTOPRAZOLE SODIUM 40 MG TABLET.DR PO SCH (06:51)
[2021-05-19 06:54] LABS: CARBON DIOXIDE 30 mmol/L (21-32); CHLORIDE 101 mmol/L (98-107); CREATININE 0.4 mg/dL (0.6-1.3); GLUCOSE 82 mg/dL (74-106); MAGNESIUM 2.4 mg/dL (1.8-2.4); POTASSIUM 3.9 mmol/L (3.5-5.1); UREA NITROGEN, BLOOD 12 mg/dL (7-18)
[2021-05-19] MEDS: BENZONATATE 100 MG CAPSULE PO SCH ×3 (07:10→21:14)
--- NOTE | 2021-05-19 07:30 | NUR ---
received in bed awake. on 15 Lpm nrb mask. denies chest/difficulty breathing. no sob noted. feels about the same as previous day he stated. spo2 95-96%. he is comfortable. call light in reach. will cont to monitor.
[2021-05-19] MEDS: METFORMIN HCL 500 MG TABLET PO SCH ×2 (08:49→17:26)
[2021-05-19] MEDS: CHOLECALCIFEROL 1,000 UNIT TABLET PO SCH (09:27)
[2021-05-19] MEDS: ASCORBIC ACID 500 MG TABLET PO SCH (09:27)
[2021-05-19] MEDS: FAMOTIDINE 20 MG TABLET PO SCH (09:28)
[2021-05-19] MEDS: APIXABAN 5 MG TABLET PO SCH ×2 (09:28→20:32)
[2021-05-19] MEDS: DEXAMETHASONE SOD PHOSPHATE 4 MG INJ IV SCH (09:32)
[2021-05-19] MEDS: FLUTICASONE/VILANTEROL 1 EACH BLST.W.DEV INH SCH (09:35)
[2021-05-19 09:46] LABS: LYMPHOCYTES % (MANUAL) 20 % (20-40); MONOCYTES % (MANUAL) 12 % (2-10); NEUTROPHILS % (MANUAL) 68 % (42-75)
[2021-05-19 10:30] VITALS: BP 101/69
--- NOTE | 2021-05-19 12:00 | NUR ---
Per Jerald CORONADO, he spoke with IP nurse Cruz and ok for patient to move to non-covid room. Pt aware and agreeable.
--- NOTE | 2021-05-19 14:47 | NUR ---
patient moved to room 29b via bed stretcher with Senior Manager Asset Protection and RT, pt tolerated. no acute distress. pt likes current room.
[2021-05-19 15:48] VITALS: BP 120/71
--- NOTE | 2021-05-19 18:54 | NUR ---
alert and oriented x4. no acute distress. on 15 Lpm nrb mask. denies sob or chest pain. spo2 noted 95-97%. pt is comfortable. needs attended. safety measures in place.
--- NOTE | 2021-05-19 19:30 | NUR ---
RECEIVED PT AWAKE, ALERT AND ORIENTEDX4. PT IN NO ACUTE DISTRESS. IV INTACT. PT ON 15L NONREBREATHER MASK AT 99%. PT ON SINUS RHYTHM. SAFETY AND COMFORT PROVIDED. WILL CONTINUE TO MONITOR.
[2021-05-19 20:30] VITALS: BP 103/67
[2021-05-20] MEDS: HYDROCODONE BIT/HOMATROPINE 5 ML UDC PO PRN ×2 (00:15→21:11)
[2021-05-20 00:40] VITALS: BP 105/61
--- NOTE | 2021-05-20 00:40 | NUR ---
AT 0015H HYDROMET SYRUP 5ML PRN GIVEN TO PT FOR COUGH PER PT REQUEST.
[2021-05-20 04:55] VITALS: BP 116/61
--- NOTE | 2021-05-20 06:01 | NUR ---
PT SLEPT INTERMITTENTLY. PT IN NO ACUTE DISTRESS. PT ON 15L NONREBREATHER MASK. PRESCRIBED MEDICATION GIVEN AND PT TOLERATED IT WELL. PT ON SINUS RHYTHM. SAFETY AND COMFORT PROVIDED. ALL NEEDS ARE MET. WILL ENDORSE TO INCOMING NURSE FOR CONTINUITY OF CARE.
[2021-05-20] MEDS: PANTOPRAZOLE SODIUM 40 MG TABLET.DR PO SCH (06:22)
[2021-05-20] MEDS: BENZONATATE 100 MG CAPSULE PO SCH ×3 (06:22→21:13)
[2021-05-20 06:28] LABS: MEAN CORPUSCULAR HEMOGLOBIN 30.6 uug (23.8-33.4); MEAN CORPUSCULAR VOLUME 91.4 fL (73.0-96.2); PLATELET COUNT (AUTO) 148 K/uL (152-348)
[2021-05-20 06:53] LABS: CARBON DIOXIDE 30 mmol/L (21-32); CHLORIDE 103 mmol/L (98-107); CREATININE 0.6 mg/dL (0.6-1.3); FERRITIN 735 ng/mL (26-388); GLUCOSE 88 mg/dL (74-106); LACTATE DEHYDROGENASE 435 U/L (85-227); MAGNESIUM 2.2 mg/dL (1.8-2.4); PHOSPHOROUS 4.7 mg/dL (2.5-4.9); POTASSIUM 4.1 mmol/L (3.5-5.1); UREA NITROGEN, BLOOD 19 mg/dL (7-18)
--- NOTE | 2021-05-20 07:30 | NUR ---
RECEIVED PATIENT IN BED AWAKE ALERT AND ORIENTED DENIES DISCOMFORTS AT THIS TIME REMAIN ON 15 LITERS OF NON REBREATHER MASK ORDERED AND STATED FEELS OKAY CALL LIGHTS AND PERSONAL BELONGINGS ARE WITHIN EASY REACH AT THIS TIME WILL CONTINUE TO OBSERVE.
[2021-05-20] MEDS: ASCORBIC ACID 500 MG TABLET PO SCH (08:41)
[2021-05-20] MEDS: CHOLECALCIFEROL 1,000 UNIT TABLET PO SCH (08:41)
[2021-05-20] MEDS: METFORMIN HCL 500 MG TABLET PO SCH ×2 (08:41→17:48)
[2021-05-20] MEDS: FAMOTIDINE 20 MG TABLET PO SCH (08:41)
[2021-05-20] MEDS: APIXABAN 5 MG TABLET PO SCH ×2 (08:42→21:12)
[2021-05-20] MEDS: DEXAMETHASONE SOD PHOSPHATE 4 MG INJ IV SCH (08:42)
[2021-05-20] MEDS: FLUTICASONE/VILANTEROL 1 EACH BLST.W.DEV INH SCH (08:45)
--- NOTE | 2021-05-20 08:49 | NUR ---
DR MIDDLETON HERE TO SEE PATIENT WITH NEW ORDERS AND NOTED
[2021-05-20 12:00] VITALS: BP 126/83
--- NOTE | 2021-05-20 13:07 | NUR ---
FAMILY HERE TO VISIT AND PATIENT IS IN [employer] RESTING WITH 15 LITERS NRM WITH NO SHORTNESS OF BREATH AT THIS TIME.
[2021-05-20 16:00] VITALS: BP 104/65
--- NOTE | 2021-05-20 18:00 | NUR ---
RESTING IN BED AT THIS TIME WITH NON REBREATHER MASK WAS SEEN BY THE PHYSICAL THERAPY WITH EXERSION AND SATS DOWN TO 83 PLACED BACK INTO BED AND O2 CONTINUES ORDERED.
[2021-05-20 20:26] VITALS: BP 115/64
--- NOTE | 2021-05-20 22:00 | NUR ---
Patient alert oriented, no sob no chest pain, still on 15 liters non rebreather mask, tolerate well, sat 96%, still non productive cough, given cough meds as order, on tele monitor sinus rhythm sinus tachy when moving or ambulating to the toilet, cont to monitor.
[2021-05-21 00:10] VITALS: BP 110/70
[2021-05-21 04:21] VITALS: BP 109/70
[2021-05-21 06:07] LABS: HEMATOCRIT 38.7 % (36.7-47.1); MEAN CORPUSCULAR HEMOGLOBIN 30.6 uug (23.8-33.4); MEAN CORPUSCULAR VOLUME 91.2 fL (73.0-96.2); PLATELET COUNT (AUTO) 158 K/uL (152-348)
[2021-05-21] MEDS: BENZONATATE 100 MG CAPSULE PO SCH ×3 (06:21→21:08)
[2021-05-21] MEDS: PANTOPRAZOLE SODIUM 40 MG TABLET.DR PO SCH (06:21)
[2021-05-21 06:24] LABS: CARBON DIOXIDE 31 mmol/L (21-32); CHLORIDE 102 mmol/L (98-107); CREATININE 0.6 mg/dL (0.6-1.3); GLUCOSE 86 mg/dL (74-106); MAGNESIUM 2.3 mg/dL (1.8-2.4); PHOSPHOROUS 4.7 mg/dL (2.5-4.9); UREA NITROGEN, BLOOD 19 mg/dL (7-18)
--- NOTE | 2021-05-21 07:30 | NUR ---
RECEIVED PATIENT IN BED AWAKE ALERT AND ORIENTED WITH O2 WITH NON REBREATHER MASK AT 15 LITERS WITH ADEQUATE SATS BUT PATIENT TENDS TO DESAT WITH EXERCISE DENIES PAIN OR DISCOMFORTS AT THIS TIME CALL MLIGHTS AND PERSONAL BELONGINGS ARE WITHIN EASY REACH MADE COMFORTABLE WILL CONTINUE TO OBSERVE.
[2021-05-21] MEDS: FLUTICASONE/VILANTEROL 1 EACH BLST.W.DEV INH SCH (09:00)
[2021-05-21] MEDS: DEXAMETHASONE SOD PHOSPHATE 4 MG INJ IV SCH (09:04)
[2021-05-21] MEDS: CHOLECALCIFEROL 1,000 UNIT TABLET PO SCH (09:04)
[2021-05-21] MEDS: ASCORBIC ACID 500 MG TABLET PO SCH (09:04)
[2021-05-21] MEDS: FAMOTIDINE 20 MG TABLET PO SCH (09:04)
[2021-05-21] MEDS: METFORMIN HCL 500 MG TABLET PO SCH ×2 (09:11→17:45)
[2021-05-21] MEDS: APIXABAN 5 MG TABLET PO SCH ×2 (09:13→21:10)
--- NOTE | 2021-05-21 10:15 | NUR ---
ESTRELLA BENNETT STILL OPERATOR BRANDY HERE TO SEE PATIENT WITH NO NEW ORDERS THE PLAN IS THAT ATTEMPTS SHOULD BE MADE TO TITRATE PATIENTS O2 DOWN TODAY.
--- NOTE | 2021-05-21 10:30 | NUR ---
DR MIDDLETON HERE AND SEEN PATIENT AND STATED TO ATTEMPT TO TITRATE THE PATIENT DOWN MUCH ABLE HE SUGGESTED SIMPLE MASK AT 10 LITERS ESPECIALLY DURING EXERCISE TO SEE IF HE COULD TOLERATE IT.
--- NOTE | 2021-05-21 11:15 | NUR ---
PATIENT SEEN BY PHYSICAL THERAPY AND ATTEMPTS WAS MADE TO TITRATE PATIENTS OXYGEN HE WAS PLACED ON SIMPLE MASK AT 10 LITERS TO CHECK TO SEE IF HIS SATURATION WILL ALLOW HIM TO PARTICIPATE IN THE THERAPY WITH LOWER O2 USE BUT PATIENT IMMEDIATELY STATED THAT THE RESPIRATORY THERAPIST HAD TOLD HIM TO DO NOT REMOVE THE NON REBREATHER AT ALL HE STARTED TO PANIC GOT VERY ANXIOUS BREATHING VERY HARD DID NOT EVEN GIVE ME THE CHANCE TO CHECK THE O2 SAT SO I HAD TO IMMEDIATELY REMOVE THE MASK AND REAPPLY THE NON REBREATHER MASK DR MIDDLETON WAS STILL HERE AND HE WAS NOTIFIED.
[2021-05-21 11:40] VITALS: BP 108/67
[2021-05-21 16:00] VITALS: BP 127/84
--- NOTE | 2021-05-21 18:00 | NUR ---
PATIENT IS AWAKE ALERT DENIES DISCOMFORTS REMAIN ON O2 BY NON REBREATHER MASK AT 15 LITERS ORDERED WITH SHORTNESS OF BREATH UPON EXERTION BUT IS COMFORTABLE WHEN RESTING.WILL CONTINUE TO OBSERVE.
[2021-05-21 20:35] VITALS: BP 120/74
--- NOTE | 2021-05-21 21:30 | NUR ---
PATIENT IS AWAKE ALERT AND ORIENTED DENIES PAIN OR DISCOMFORTS CONTINUE TO REQUIRE O2 BY NON REBREATHER MASK TO SUSTAIN SATURATION EASILY EXERTS REMAIN ON BLOOD THINNER ORDERED WITH NO ADVERSE EFFECTS MADE COMFORTABLE WILL CONTINUE TO OBSERVE.
[2021-05-21] MEDS: HYDROCODONE BIT/HOMATROPINE 5 ML UDC PO PRN (23:44)
--- NOTE | 2021-05-21 23:44 | NUR ---
AWAKE ALERT REQUESTED FOR COUGH MEDICATIONS MEDICATED ORDERED WILL OBSERVE.
[2021-05-22 00:05] VITALS: BP 116/78
[2021-05-22 04:10] VITALS: BP 118/82
--- NOTE | 2021-05-22 06:00 | NUR ---
AWAKE ALERT STATED SLEPT POORLY LAST NITE REMAIN ON NRM WITH NO SOB AT THIS TIME WILL CONTINUE TO OBSERVE.
[2021-05-22 06:21] LABS: HEMATOCRIT 39.9 % (36.7-47.1); MEAN CORPUSCULAR HEMOGLOBIN 30.9 uug (23.8-33.4); MEAN CORPUSCULAR VOLUME 92.2 fL (73.0-96.2); PLATELET COUNT (AUTO) 185 K/uL (152-348)
[2021-05-22] MEDS: PANTOPRAZOLE SODIUM 40 MG TABLET.DR PO SCH (06:28)
[2021-05-22] MEDS: BENZONATATE 100 MG CAPSULE PO SCH ×3 (06:28→21:13)
[2021-05-22 06:29] LABS: CARBON DIOXIDE 30 mmol/L (21-32); CHLORIDE 102 mmol/L (98-107); CREATININE 0.6 mg/dL (0.6-1.3); GLUCOSE 84 mg/dL (74-106); MAGNESIUM 2.3 mg/dL (1.8-2.4); PHOSPHOROUS 5.3 mg/dL (2.5-4.9); POTASSIUM 4.2 mmol/L (3.5-5.1); UREA NITROGEN, BLOOD 18 mg/dL (7-18)
[2021-05-22] MEDS: CHOLECALCIFEROL 1,000 UNIT TABLET PO SCH (08:27)
[2021-05-22] MEDS: DEXAMETHASONE SOD PHOSPHATE 4 MG INJ IV SCH (08:27)
[2021-05-22] MEDS: ASCORBIC ACID 500 MG TABLET PO SCH (08:28)
[2021-05-22] MEDS: FAMOTIDINE 20 MG TABLET PO SCH (08:28)
[2021-05-22] MEDS: APIXABAN 5 MG TABLET PO SCH ×2 (08:31→21:14)
[2021-05-22] MEDS: METFORMIN HCL 500 MG TABLET PO SCH ×2 (08:40→17:46)
[2021-05-22] MEDS: FLUTICASONE/VILANTEROL 1 EACH BLST.W.DEV INH SCH (08:41)
[2021-05-22 11:51] VITALS: BP 139/94
[2021-05-22 16:00] VITALS: BP 124/80
[2021-05-22 20:30] VITALS: BP 143/104
[2021-05-22 21:00] VITALS: BP 103/53
--- NOTE | 2021-05-22 22:43 | NUR ---
Received pt awake on bed, at 15LPM via non-rebreather mask in place. O2 sat at 99%. Midline line on JESSEE remains intact and patent. Due medication given and tolerated well. All needs attended. Call light placed within reach. Will continue to monitor.
[2021-05-22 23:36] LABS: COCCIDIOIDES CF SERUM 1:4 High
[2021-05-23 00:10] VITALS: BP 110/47
[2021-05-23] MEDS: HYDROCODONE BIT/HOMATROPINE 5 ML UDC PO PRN ×3 (00:39→16:00)
[2021-05-23] MEDS: BENZONATATE 100 MG CAPSULE PO SCH ×3 (05:40→21:59)
[2021-05-23] MEDS: PANTOPRAZOLE SODIUM 40 MG TABLET.DR PO SCH (06:02)
--- NOTE | 2021-05-23 06:25 | NUR ---
Pt slept intermittently throughout the night, at 15LPM via non-rebreather mask in place. O2 sat at 100, new pulse ox probe placed. Midline line on JESSEE remains intact and patent. Due medication given and tolerated well. Cough syrup PRN given. All needs attended. Call light placed within reach. Frequent visual checks done. Will endorse for continuity of care.
[2021-05-23] MEDS: METFORMIN HCL 500 MG TABLET PO SCH ×2 (09:06→17:32)
[2021-05-23] MEDS: CHOLECALCIFEROL 1,000 UNIT TABLET PO SCH (09:07)
[2021-05-23] MEDS: ASCORBIC ACID 500 MG TABLET PO SCH (09:07)
[2021-05-23] MEDS: FAMOTIDINE 20 MG TABLET PO SCH (09:07)
[2021-05-23] MEDS: FLUTICASONE/VILANTEROL 1 EACH BLST.W.DEV INH SCH (09:08)
[2021-05-23] MEDS: APIXABAN 5 MG TABLET PO SCH ×2 (09:08→20:51)
[2021-05-23] MEDS: DEXAMETHASONE SOD PHOSPHATE 4 MG INJ IV SCH (09:08)
[2021-05-23 11:30] VITALS: BP 121/62
[2021-05-23 11:36] VITALS: BP 121/62
[2021-05-23 15:33] VITALS: BP 149/47
[2021-05-23] MEDS: IPRATROPIUM BROMIDE 0.5 MG/2.5 ML NEBU NEB PRN (16:01)
[2021-05-23] MEDS: ALBUTEROL SULFATE 1.25 MG/3 ML NEBU NEB PRN (16:01)
--- NOTE | 2021-05-23 18:30 | NUR ---
PT AAO X4 Remain on 02 at 15 liters by NRB mask 02 sats 96-97% . PT sinus rhythm on Tele. HHN TX given by RT as ordered .PRN cough medicine given X1 with noted relief, no c/o of pain or acute distress
--- NOTE | 2021-05-23 20:00 | NUR ---
AWAKE,ALERT X3 ,IN 100% REBREATHER MASK,PULSE OXIMETRY 99% PT OKAY WITH NON REBREATHER MASK,COMFORTABLE. NO COMPLAINTS MADE . MOVING IN BED.WATCHING TV.
[2021-05-23 20:25] VITALS: BP 107/47
[2021-05-24 04:20] VITALS: BP 103/73
[2021-05-24] MEDS ORDERED: BENZONATATE 100 MG CAPSULE ONE (04:24)
[2021-05-24] MEDS: HYDROCODONE BIT/HOMATROPINE 5 ML UDC PO PRN ×2 (04:37→23:33)
[2021-05-24] MEDS: BENZONATATE 100 MG CAPSULE PO SCH ×3 (05:56→21:10)
--- NOTE | 2021-05-24 06:08 | NUR ---
SLEPT AT INTERVALS ,COUGHING AT INTERVALS ,COUGH MEDICATION GIVEN.
[2021-05-24 06:18] LABS: HEMATOCRIT 39.1 % (36.7-47.1); MEAN CORPUSCULAR VOLUME 92.3 fL (73.0-96.2); PLATELET COUNT (AUTO) 220 K/uL (152-348)
[2021-05-24] MEDS: PANTOPRAZOLE SODIUM 40 MG TABLET.DR PO SCH (06:21)
[2021-05-24 06:40] LABS: CARBON DIOXIDE 32 mmol/L (21-32); CHLORIDE 103 mmol/L (98-107); CREATININE 0.6 mg/dL (0.6-1.3); GLUCOSE 89 mg/dL (74-106); MAGNESIUM 2.4 mg/dL (1.8-2.4); POTASSIUM 4.1 mmol/L (3.5-5.1); UREA NITROGEN, BLOOD 17 mg/dL (7-18)
[2021-05-24 07:30] VITALS: BP 112/63
[2021-05-24] MEDS: METFORMIN HCL 500 MG TABLET PO SCH ×2 (08:01→17:30)
[2021-05-24] MEDS: DEXAMETHASONE SOD PHOSPHATE 4 MG INJ IV SCH (08:02)
[2021-05-24] MEDS: CHOLECALCIFEROL 1,000 UNIT TABLET PO SCH (08:02)
[2021-05-24] MEDS: ASCORBIC ACID 500 MG TABLET PO SCH (08:02)
[2021-05-24] MEDS: FAMOTIDINE 20 MG TABLET PO SCH (08:02)
[2021-05-24] MEDS: APIXABAN 5 MG TABLET PO SCH ×2 (08:03→20:44)
[2021-05-24] MEDS: FLUTICASONE/VILANTEROL 1 EACH BLST.W.DEV INH SCH (08:04)
[2021-05-24 16:07] VITALS: BP 109/57
--- NOTE | 2021-05-24 18:55 | NUR ---
Patient resting in bed. AOx3-4. On 100% nonrebreather mask, 97-98% saturation. Patient denies pain/ discomfort at this time. Compliant with medications and care. Needs anticipated and met. Call light within reach. Bed alarm on for safety. Will endorse to incoming shift for continuity of care.
--- NOTE | 2021-05-24 20:00 | NUR ---
Received patient awake in bed. a/o x4. Denies any pain or discomfort. Denies any SOB. No resp. distress noted. On non-rebreather mask sating 100%. Mid-line noted to Left upper arm, intact. All needs attended. Call light in reach. Will continue to monitor and assess.
[2021-05-24 20:10] VITALS: BP 121/80
--- NOTE | 2021-05-24 20:30 | NUR ---
PATIENT ON TELE SR. WILL CONTINUE TO MONITOR AND ASSESS.
[2021-05-25 00:09] VITALS: BP 116/69
[2021-05-25 04:20] VITALS: BP 115/73
[2021-05-25] MEDS: BENZONATATE 100 MG CAPSULE PO SCH ×3 (06:13→21:08)
[2021-05-25] MEDS: PANTOPRAZOLE SODIUM 40 MG TABLET.DR PO SCH (06:13)
[2021-05-25] MEDS: IPRATROPIUM BROMIDE 0.5 MG/2.5 ML NEBU NEB PRN (07:36)
[2021-05-25] MEDS: ALBUTEROL SULFATE 1.25 MG/3 ML NEBU NEB PRN (07:36)
--- NOTE | 2021-05-25 08:00 | NUR ---
RESTING COMFORTABLY IN BED WITH 15L NRM SATURATING 93-94%, ABLE TO COUGH WELL BUT UNABLE TO EXPECTORATE. SR ON MONITORING. CONTINUE TELEMETRY MONITORING
[2021-05-25] MEDS: METFORMIN HCL 500 MG TABLET PO SCH ×2 (08:16→17:19)
[2021-05-25] MEDS: ASCORBIC ACID 500 MG TABLET PO SCH (08:17)
[2021-05-25] MEDS: FAMOTIDINE 20 MG TABLET PO SCH (08:17)
[2021-05-25] MEDS: ACETAMINOPHEN 325 MG TABLET PO PRN (08:17)
[2021-05-25] MEDS: DEXAMETHASONE SOD PHOSPHATE 4 MG INJ IV SCH (08:17)
[2021-05-25] MEDS: CHOLECALCIFEROL 1,000 UNIT TABLET PO SCH (08:17)
[2021-05-25] MEDS: FLUTICASONE/VILANTEROL 1 EACH BLST.W.DEV INH SCH (08:18)
[2021-05-25] MEDS: APIXABAN 5 MG TABLET PO SCH ×2 (08:22→20:38)
[2021-05-25] MEDS: HYDROCODONE BIT/HOMATROPINE 5 ML UDC PO PRN (08:29)
--- NOTE | 2021-05-25 12:00 | NUR ---
NO ACUTE CHANGE FROM MORNING ASSESSMENT.CLOSELY MONITORED
[2021-05-25 13:39] VITALS: BP 101/63
[2021-05-25 16:13] VITALS: BP 112/72
--- NOTE | 2021-05-25 16:26 | NUR ---
CONTINUE WITH 15L NRM SATURATING 95%, DENIES PAIN, COUGH PRODUCTIVELY ON AND OFF. ROUTINE PRN MEDS GIVEN WITH HELP. SR ON MONITOR
--- NOTE | 2021-05-25 20:00 | NUR ---
RECEIVED PATIENT AWAKE IN BED. A/O X4. DENIES PAIN AT THIS TIME. ON O2 NON-REBREATHER 15L SATING 97%. VS WNL. ON TELE SR. CALL LIGHT IN REACH. ALL NEEDS ATTENDED. WILL CONTINUE TO MONITOR AND ASSESS.
[2021-05-25 20:49] VITALS: BP 110/64
[2021-05-26 00:18] VITALS: BP 113/81
[2021-05-26] MEDS: HYDROCODONE BIT/HOMATROPINE 5 ML UDC PO PRN ×2 (04:02→18:23)
[2021-05-26 04:44] VITALS: BP 107/50
[2021-05-26] MEDS: BENZONATATE 100 MG CAPSULE PO SCH ×3 (06:08→20:21)
[2021-05-26] MEDS: PANTOPRAZOLE SODIUM 40 MG TABLET.DR PO SCH (06:08)
--- NOTE | 2021-05-26 08:00 | NUR ---
RECEIVED REPORT FROM BOTTOM BUFFER. PATIENT SITTING UP ON SIDE OF BED. AWAKE, ALERT X4, ANSWERS QUESTIONS APPROPRIATELY.STILL NOTED WITH ON AND OFF EXERTIONAL SOB, ON 15 L/MIN VIA NRM, 02 SATS 93%, ON CONTINUES 02 SAT MONITORING AND TELEMETRY. IN SINUS RHYTHM. DENIES ANY PAIN, REMAINS AFEBRILE. CONTINUE POC.
[2021-05-26] MEDS: METFORMIN HCL 500 MG TABLET PO SCH ×2 (08:55→17:15)
[2021-05-26] MEDS: ASCORBIC ACID 500 MG TABLET PO SCH (08:55)
[2021-05-26] MEDS: CHOLECALCIFEROL 1,000 UNIT TABLET PO SCH (08:55)
[2021-05-26] MEDS: FAMOTIDINE 20 MG TABLET PO SCH (08:56)
[2021-05-26] MEDS: DEXAMETHASONE SOD PHOSPHATE 4 MG INJ IV SCH (09:10)
[2021-05-26] MEDS: FLUTICASONE/VILANTEROL 1 EACH BLST.W.DEV INH SCH (09:13)
[2021-05-26] MEDS: APIXABAN 5 MG TABLET PO SCH ×2 (09:14→20:21)
--- NOTE | 2021-05-26 10:00 | NUR ---
Pt alert and oriented x 4 pt on 15 liters on NRB mask. Pt denies any c/o pain. Call light is within reach.
--- NOTE | 2021-05-26 10:00 | NUR ---
SEEN BY DR. APARICIO , HYDROGEN TREATER, WILL RECHECK ABG IN THE MORNING OF 05.27.21
[2021-05-26 11:47] VITALS: BP 115/75
[2021-05-26 16:33] VITALS: BP 103/64
--- NOTE | 2021-05-26 18:12 | NUR ---
NO CHANGE NOTED FROM MORNING ASSESSMENT/ BASELINE. CONTINUE POC.
[2021-05-26 20:30] VITALS: BP 110/68
[2021-05-27 00:15] VITALS: BP 114/61
[2021-05-27 05:23] VITALS: BP 133/88
[2021-05-27] MEDS: PANTOPRAZOLE SODIUM 40 MG TABLET.DR PO SCH (06:08)
[2021-05-27] MEDS: BENZONATATE 100 MG CAPSULE PO SCH ×3 (06:09→21:36)
--- NOTE | 2021-05-27 06:49 | NUR ---
Pt is in no acute distress. No change from prior assessment. Call light is within reach.
[2021-05-27 07:38] LABS: ABG BASE EXCESS 4.7 mmol/L; ABG HCO3 27.5 mmol/L; ABG PCO2 34.2 mmHg (35.0-45.0); ABG PH 7.523 (7.350-7.450); ABG PO2 122.4 mmHg (75.0-100.0); ABG SITE RIGHT RADIAL; ABG TOTAL HEMOGLOBIN 11.3 G/dL (13.5-18.0); COHb 0.1 % (0.5-1.5); MetHb 0.2 % (0.0-1.5); O2Hb 98.1 % (94.0-97.0); VENT MODE Nasal Cannula
--- NOTE | 2021-05-27 08:00 | NUR ---
RECEIVED REPORT FROM MATTRESS WEAVER. PAPTIENT IN HIGH FOWLERS POSITION. AWAKE, ALERT X4, ANSWERS QUESTIONS APPROPRIATELY.ON AND OFF EXERTIONAL SOB, ON 15 L/MIN VIA NRM, 02 SATS 99%, DESATURATES TO HIGH 89 ON EXERTION. CONTINUES ON 02 SAT MONITORING AND TELEMETRY. IN SINUS RHYTHM. DENIES ANY PAIN, REMAINS AFEBRILE. CONTINUE POC.
[2021-05-27] MEDS: CHOLECALCIFEROL 1,000 UNIT TABLET PO SCH (08:24)
[2021-05-27] MEDS: METFORMIN HCL 500 MG TABLET PO SCH ×2 (08:25→17:01)
[2021-05-27] MEDS: ASCORBIC ACID 500 MG TABLET PO SCH (08:25)
[2021-05-27] MEDS: FAMOTIDINE 20 MG TABLET PO SCH (08:25)
[2021-05-27] MEDS: DEXAMETHASONE SOD PHOSPHATE 4 MG INJ IV SCH (08:26)
[2021-05-27] MEDS: APIXABAN 5 MG TABLET PO SCH ×2 (08:26→20:44)
[2021-05-27] MEDS: FLUTICASONE/VILANTEROL 1 EACH BLST.W.DEV INH SCH (08:26)
--- NOTE | 2021-05-27 08:49 | NUR ---
dr ibarra in for pulmo follow-up noted abg results, see notes
[2021-05-27 12:00] VITALS: BP 112/70
[2021-05-27] MEDS: HYDROCODONE BIT/HOMATROPINE 5 ML UDC PO PRN ×2 (14:45→20:48)
[2021-05-27 15:53] VITALS: BP 92/56
--- NOTE | 2021-05-27 18:32 | NUR ---
patient status is unchanged from morning baseline. no labored breathing. Saturation is 94% on 15 L/ min via NRM. States mild discomfort to knees, refuses any pain medication this shift.
[2021-05-27 20:00] VITALS: BP 111/60
--- NOTE | 2021-05-27 20:00 | NUR ---
RECEIVED PATIENT AWAKE IN BED. A/O X4. ON O2 15L NON-REBREATHER MASK SATING 97-100%. VS WNL. NO C/O PAIN AT THIS TIME. MID-LINE NOTED TO LEFT UPPER ARM. MID-LINE, INTACT. VS WNL. ON SR. CALL LIGHT IN REACH. ALL NEEDS ATTENDED. WILL CONTINUE TO MONITOR AND ASSESS.
--- NOTE | 2021-05-27 22:30 | NUR ---
NOTIFIED DR. NAJERA THAT AT 22:12 PATIENT HAD AN EPISODE OF 9 BEATS OF V-TACH. ALSO INFORM MD THAT EARLIER, PATIENTS HEART RATE WENT UP TO THE 130'S WHEN OOB TO THE [facility]. STATED HE WILL NOTIFY CARDIO. MONUMENT MASON NOTIFIED. WILL CONTINUE TO MONITOR AND ASSESS.
[2021-05-28] VITALS: BP 110/61
[2021-05-28 04:00] VITALS: BP 114/79
[2021-05-28] MEDS: BENZONATATE 100 MG CAPSULE PO SCH ×3 (05:49→21:06)
[2021-05-28 06:14] LABS: HEMATOCRIT 39.3 % (36.7-47.1); MEAN CORPUSCULAR HEMOGLOBIN 31.4 uug (23.8-33.4); MEAN CORPUSCULAR VOLUME 92.1 fL (73.0-96.2); PLATELET COUNT (AUTO) 369 K/uL (152-348)
[2021-05-28] MEDS: PANTOPRAZOLE SODIUM 40 MG TABLET.DR PO SCH (06:24)
[2021-05-28 06:44] LABS: MAGNESIUM 2.1 mg/dL (1.8-2.4); PHOSPHOROUS 3.7 mg/dL (2.5-4.9); POTASSIUM 4.1 mmol/L (3.5-5.1)
--- NOTE | 2021-05-28 07:30 | NUR ---
received patient sitting up in bed in no apparent distress. patient is alert and oriented x4 and able to make needs known, patient currently on non-rebreather mask at 15L current spo2 is 97%, v/s bp:119/69, P:88, rr: 19, t: 98.4, pain 0/10. patient asking to call kitchen to put in food order, food order placed. patient is able to transfer onto bedside commode, uses urinal. reminded patient to use call light for assistance. side rails up x2 will monitor.
[2021-05-28 08:45] VITALS: BP 119/69
[2021-05-28] MEDS: METFORMIN HCL 500 MG TABLET PO SCH ×2 (08:54→18:03)
[2021-05-28] MEDS: FLUTICASONE/VILANTEROL 1 EACH BLST.W.DEV INH SCH (09:00)
[2021-05-28] MEDS: DEXAMETHASONE SOD PHOSPHATE 4 MG INJ IV SCH (09:08)
[2021-05-28] MEDS: CHOLECALCIFEROL 1,000 UNIT TABLET PO SCH (09:08)
[2021-05-28] MEDS: FAMOTIDINE 20 MG TABLET PO SCH (09:09)
[2021-05-28] MEDS: ASCORBIC ACID 500 MG TABLET PO SCH (09:09)
[2021-05-28] MEDS: APIXABAN 5 MG TABLET PO SCH ×2 (09:11→21:05)
[2021-05-28] MEDS: METOPROLOL SUCCINATE XL 25 MG TAB.SR.24H PO SCH (09:19)
[2021-05-28 11:05] VITALS: BP 124/85
--- NOTE | 2021-05-28 13:00 | NUR ---
patient seen by physical therapy, per physical therapy patient tolerated ambulating in room well.
[2021-05-28 15:07] VITALS: BP 121/71
[2021-05-28] MEDS: IPRATROPIUM BROMIDE 0.5 MG/2.5 ML NEBU NEB PRN (18:24)
[2021-05-28] MEDS: ALBUTEROL SULFATE 1.25 MG/3 ML NEBU NEB PRN (18:24)
--- NOTE | 2021-05-28 18:31 | NUR ---
patient remains stable at this time, asked for hhn treatment at 1800 and tolerated well, currently 95% on 15l non-rebreather. no c/o sob at this time.
[2021-05-28 20:00] VITALS: BP 110/61
[2021-05-28] MEDS: HYDROCODONE BIT/HOMATROPINE 5 ML UDC PO PRN (21:06)
[2021-05-29] VITALS: BP 109/60
[2021-05-29 04:00] VITALS: BP 137/78
[2021-05-29] MEDS: PANTOPRAZOLE SODIUM 40 MG TABLET.DR PO SCH (05:45)
[2021-05-29] MEDS: BENZONATATE 100 MG CAPSULE PO SCH ×3 (05:46→21:05)
--- NOTE | 2021-05-29 06:14 | NUR ---
SLEPT AT INTERVALS.NO COMPLAINTS MADE CONDITION UNCHANGED
[2021-05-29 06:40] LABS: HEMATOCRIT 39.6 % (36.7-47.1); MEAN CORPUSCULAR HEMOGLOBIN 31.4 uug (23.8-33.4); MEAN CORPUSCULAR VOLUME 92.7 fL (73.0-96.2); PLATELET COUNT (AUTO) 359 K/uL (152-348)
[2021-05-29 07:05] LABS: CARBON DIOXIDE 29 mmol/L (21-32); CHLORIDE 103 mmol/L (98-107); CREATININE 0.6 mg/dL (0.6-1.3); GLUCOSE 77 mg/dL (74-106); POTASSIUM 4.1 mmol/L (3.5-5.1); UREA NITROGEN, BLOOD 19 mg/dL (7-18)
[2021-05-29 08:00] VITALS: BP 112/63
--- NOTE | 2021-05-29 08:00 | NUR ---
received patient sitting up in bed in no apparent distress. patient is alert and oriented x4 and able to make needs known, patient currently on non-rebreather mask at 15L current spo2 is 97%, v/s bp:112/63, P:95, rr: 20, t: 98.0, pain 0/10. midline to left upper arm in place and patent. reminded patient to use call light for assistance. side rails up x2 will monitor.
[2021-05-29] MEDS: METFORMIN HCL 500 MG TABLET PO SCH ×2 (08:51→17:40)
[2021-05-29] MEDS: CHOLECALCIFEROL 1,000 UNIT TABLET PO SCH (08:58)
[2021-05-29] MEDS: FLUTICASONE/VILANTEROL 1 EACH BLST.W.DEV INH SCH (09:00)
[2021-05-29] MEDS: ASCORBIC ACID 500 MG TABLET PO SCH (09:00)
[2021-05-29] MEDS: FAMOTIDINE 20 MG TABLET PO SCH (09:00)
[2021-05-29] MEDS: METOPROLOL SUCCINATE XL 25 MG TAB.SR.24H PO SCH (09:01)
[2021-05-29] MEDS: APIXABAN 5 MG TABLET PO SCH ×2 (09:01→20:41)
[2021-05-29] MEDS: DEXAMETHASONE SOD PHOSPHATE 4 MG INJ IV SCH (09:02)
--- NOTE | 2021-05-29 09:45 | NUR ---
attempted to wean patient to 10L, RT present in room, patients spo2 dropped to 87-88 with patient stating feeling short of breath. patient back on 15L via non-rebreather. currently with rr even and non-labored, and no c/o sob.
--- NOTE | 2021-05-29 10:00 | NUR ---
patient seen by Dr. Dyer, Dr. Dyer made aware that patient is complaining of dry sinuses, new order for saline nasal spray.
[2021-05-29] MEDS ORDERED: NORMAL SALINE NASAL 45 ML BOTTLE NS PRN (10:45)
[2021-05-29 12:00] VITALS: BP 118/49
[2021-05-29] MEDS: SULFAMETH/TRIMETH 800/160 MG TABLET PO SCH (14:19)
[2021-05-29 15:46] VITALS: BP 118/64
--- NOTE | 2021-05-29 18:46 | NUR ---
patient remains stable at this time.
[2021-05-29 20:00] VITALS: BP 113/50
[2021-05-29] MEDS: HYDROCODONE BIT/HOMATROPINE 5 ML UDC PO PRN (22:02)
[2021-05-30] VITALS: BP 109/59
[2021-05-30 04:00] VITALS: BP 118/75
[2021-05-30] MEDS: BENZONATATE 100 MG CAPSULE PO SCH ×3 (06:10→21:46)
[2021-05-30] MEDS: PANTOPRAZOLE SODIUM 40 MG TABLET.DR PO SCH (06:10)
[2021-05-30 06:53] LABS: HEMATOCRIT 40.1 % (36.7-47.1); MEAN CORPUSCULAR HEMOGLOBIN 30.7 uug (23.8-33.4); MEAN CORPUSCULAR VOLUME 92.1 fL (73.0-96.2); PLATELET COUNT (AUTO) 449 K/uL (152-348)
--- NOTE | 2021-05-30 07:28 | NUR ---
had unevetful night; BM x1; needs attended; remains on 15L NRM; report given to Lilo.
[2021-05-30 07:29] LABS: CREATININE 0.8 mg/dL (0.6-1.3); MAGNESIUM 2.2 mg/dL (1.8-2.4); PHOSPHOROUS 4.7 mg/dL (2.5-4.9); POTASSIUM 3.9 mmol/L (3.5-5.1)
[2021-05-30] MEDS: ASCORBIC ACID 500 MG TABLET PO SCH (08:13)
[2021-05-30] MEDS: METFORMIN HCL 500 MG TABLET PO SCH ×2 (08:13→17:39)
[2021-05-30] MEDS: CHOLECALCIFEROL 1,000 UNIT TABLET PO SCH (08:14)
[2021-05-30] MEDS: FAMOTIDINE 20 MG TABLET PO SCH (08:14)
[2021-05-30] MEDS: DEXAMETHASONE SOD PHOSPHATE 4 MG INJ IV SCH (08:15)
[2021-05-30] MEDS: METOPROLOL SUCCINATE XL 25 MG TAB.SR.24H PO SCH (08:18)
[2021-05-30] MEDS: APIXABAN 5 MG TABLET PO SCH ×2 (08:22→20:33)
[2021-05-30] MEDS: FLUTICASONE/VILANTEROL 1 EACH BLST.W.DEV INH SCH (08:24)
[2021-05-30] MEDS: SULFAMETH/TRIMETH 800/160 MG TABLET PO SCH (10:33)
--- NOTE | 2021-05-30 10:50 | NUR ---
PT IN NO ACUTE DISTRESS. PT STABLE.PT ON 15L NONREBREATHER MASK. COMPLIANT WITH CARE. IV INTACT. SAFETY AND COMFORT PROVIDED. WILL ENDORSE FOR CONTINUITY OF CARE.
--- NOTE | 2021-05-30 11:30 | NUR ---
RECEIVED PATIENT ALERT/ORIENTED, ON CONTINUOUS 02 AT 15L NON REBREATHER, SATURATING AT 92-96%. DENIES PAIN. NO DISTRESS IDENTIFIED. KEPT CALL LIGHT WITHIN REACH. WILL CONTINUE TO MONITOR.
[2021-05-30 12:00] VITALS: BP 112/77
[2021-05-30 16:00] VITALS: BP 103/60
--- NOTE | 2021-05-30 18:22 | NUR ---
REMAINED WITHOUT ANY DISTRESS IDENTIFIED. KEPT COMFORTABLE. ALL DUE MEDS GIVEN ORDERED. FREQUENT CHECKS DONE. WILL ENDORSE TO THE NEXT SHIFT FOR CONTINUITY OF CARE
[2021-05-30 20:20] VITALS: BP 94/44
[2021-05-30] MEDS: HYDROCODONE BIT/HOMATROPINE 5 ML UDC PO PRN (20:33)
--- NOTE | 2021-05-30 20:35 | NUR ---
Received patient lying on bed, with RT doing chest physiotherapy. No acute distress noted. Patient denies chest pain, SOB or dizziness. On 15L O2 via non-rebreather mask, saturating at 96%. IV heplock on left upper arm is patent and intact with no redness or swelling noted. On engine monitor, showing sinus rhythm and HR of 64bpm. All medications were given and tolerated well. Safety and comfort measures initiated. Will continue to monitor. Addendum: 05/31/21 at 0154 by LYSSA TORRES RN IV site is on left upper arm, midline, 18 gauge.
[2021-05-31] VITALS: BP 112/75
[2021-05-31 04:00] VITALS: BP 132/67
[2021-05-31] MEDS: BENZONATATE 100 MG CAPSULE PO SCH ×3 (06:21→21:07)
[2021-05-31] MEDS: PANTOPRAZOLE SODIUM 40 MG TABLET.DR PO SCH (06:22)
--- NOTE | 2021-05-31 06:55 | NUR ---
Patient intermittently through the night. No acute distress noted. On 15L O2 via NRB, saturating at 98%.Vitals signs are WNL. Safety and comfort measures maintained. Will endorse to morning shift nurse.
[2021-05-31 07:09] LABS: HEMATOCRIT 39.4 % (36.7-47.1); MEAN CORPUSCULAR HEMOGLOBIN 30.7 uug (23.8-33.4); MEAN CORPUSCULAR VOLUME 91.9 fL (73.0-96.2); PLATELET COUNT (AUTO) 420 K/uL (152-348)
[2021-05-31 07:12] LABS: CARBON DIOXIDE 27 mmol/L (21-32); CHLORIDE 100 mmol/L (98-107); CREATININE 0.6 mg/dL (0.6-1.3); GLUCOSE 88 mg/dL (74-106); POTASSIUM 3.9 mmol/L (3.5-5.1); UREA NITROGEN, BLOOD 20 mg/dL (7-18)
--- NOTE | 2021-05-31 08:00 | NUR ---
AWAKE ALERT AND VERBALLY RESPONSIVE ON CONTINUOUS 15L NRM SATURATING 96-98%, DENIES CHEST PAIN. REMAINS SR ON MONITOR
[2021-05-31] MEDS: CHOLECALCIFEROL 1,000 UNIT TABLET PO SCH (09:02)
[2021-05-31] MEDS: FAMOTIDINE 20 MG TABLET PO SCH (09:03)
[2021-05-31] MEDS: APIXABAN 5 MG TABLET PO SCH ×2 (09:03→20:27)
[2021-05-31] MEDS: SULFAMETH/TRIMETH 800/160 MG TABLET PO SCH (09:03)
[2021-05-31] MEDS: METFORMIN HCL 500 MG TABLET PO SCH ×2 (09:04→17:17)
[2021-05-31] MEDS: ASCORBIC ACID 500 MG TABLET PO SCH (09:04)
[2021-05-31] MEDS: DEXAMETHASONE SOD PHOSPHATE 4 MG INJ IV SCH (09:04)
[2021-05-31] MEDS: METOPROLOL SUCCINATE XL 25 MG TAB.SR.24H PO SCH (09:04)
[2021-05-31] MEDS: FLUTICASONE/VILANTEROL 1 EACH BLST.W.DEV INH SCH (09:05)
[2021-05-31 12:00] VITALS: BP 107/44
--- NOTE | 2021-05-31 12:42 | NUR ---
CONTINUE TO TOLERATE 15L NRM SATURATING 97%, SITTING COMFORTABLY IN BED. SEEN BY DR MIDDLETON SEE NOTES
[2021-05-31 16:00] VITALS: BP 109/70
[2021-05-31] MEDS: HYDROCODONE BIT/HOMATROPINE 5 ML UDC PO PRN (18:27)
[2021-05-31 20:30] VITALS: BP 125/70
--- NOTE | 2021-05-31 20:59 | NUR ---
Received pt awake on bed, eating dinner brought by family. He remains on O2 15L via non-rebreather mask, saturating at 96%. He is alert and oriented x4, able to make needs known. NSR on Tele. Midline on JESSEE remain patent and intact. Denies pain and discomfort at this time. All needs attended. Call light placed within reach. Will continue to monitor.
[2021-06-01 00:37] VITALS: BP 124/76
[2021-06-01 04:20] VITALS: BP 139/73
[2021-06-01] MEDS: BENZONATATE 100 MG CAPSULE PO SCH ×3 (05:42→22:59)
[2021-06-01] MEDS: PANTOPRAZOLE SODIUM 40 MG TABLET.DR PO SCH (06:16)
[2021-06-01 07:00] LABS: CARBON DIOXIDE 30 mmol/L (21-32); CHLORIDE 102 mmol/L (98-107); CREATININE 0.7 mg/dL (0.6-1.3); GLUCOSE 89 mg/dL (74-106); HEMATOCRIT 38.2 % (36.7-47.1); MEAN CORPUSCULAR HEMOGLOBIN 30.8 uug (23.8-33.4); MEAN CORPUSCULAR VOLUME 92.4 fL (73.0-96.2); PLATELET COUNT (AUTO) 429 K/uL (152-348); POTASSIUM 3.7 mmol/L (3.5-5.1); UREA NITROGEN, BLOOD 23 mg/dL (7-18)
--- NOTE | 2021-06-01 08:00 | NUR ---
received patient sitting up in bed in no apparent distress. patient is alert and oriented x4 and able to make needs known, patient currently on non-rebreather mask at 15L current spo2 is 97%, v/s bp:115/68, P:74, rr: 20, t: 98.4, pain 0/10. midline to left upper arm in place and patent. reminded patient to use call light for assistance. side rails up x2 will monitor.
[2021-06-01] MEDS: METFORMIN HCL 500 MG TABLET PO SCH ×2 (08:13→17:01)
[2021-06-01] MEDS: CHOLECALCIFEROL 1,000 UNIT TABLET PO SCH (08:14)
[2021-06-01] MEDS: FAMOTIDINE 20 MG TABLET PO SCH (08:14)
[2021-06-01] MEDS: ASCORBIC ACID 500 MG TABLET PO SCH (08:15)
[2021-06-01] MEDS: SULFAMETH/TRIMETH 800/160 MG TABLET PO SCH (08:15)
[2021-06-01] MEDS: APIXABAN 5 MG TABLET PO SCH ×2 (08:15→21:01)
[2021-06-01] MEDS: METOPROLOL SUCCINATE XL 25 MG TAB.SR.24H PO SCH (08:17)
[2021-06-01] MEDS: DEXAMETHASONE SOD PHOSPHATE 4 MG INJ IV SCH (08:18)
[2021-06-01] MEDS: FLUTICASONE/VILANTEROL 1 EACH BLST.W.DEV INH SCH (08:20)
[2021-06-01 08:30] VITALS: BP 102/50
[2021-06-01 11:46] VITALS: BP 107/56
--- NOTE | 2021-06-01 14:05 | NUR ---
patient placed on 14 liters via non-rebreather, currently tolerating well. respirations even and non-labored, currently with spo2 at 97% on 14L. will continue to attempt to titrate.
[2021-06-01 16:06] VITALS: BP 114/80
--- NOTE | 2021-06-01 17:03 | NUR ---
patient remains on 14L currently with spo2 @ 98%, attempted to titrate down to 13L per patient, not right now maybe in a little bit.
--- NOTE | 2021-06-01 18:54 | NUR ---
patient remains stable at this time. v/w wnl, currently 97% on 14L via non-rebreather. rr even and non-labored, 0 episode of sob. call light within reach, side rails up x2.
[2021-06-01 20:15] VITALS: BP 119/75
[2021-06-02] VITALS: BP 153/94
[2021-06-02] MEDS: HYDROCODONE BIT/HOMATROPINE 5 ML UDC PO PRN ×2 (00:18→20:09)
[2021-06-02 04:18] VITALS: BP 124/77
[2021-06-02] MEDS: ALBUTEROL SULFATE 1.25 MG/3 ML NEBU NEB PRN ×2 (04:27→21:16)
[2021-06-02] MEDS: IPRATROPIUM BROMIDE 0.5 MG/2.5 ML NEBU NEB PRN ×2 (04:27→21:16)
[2021-06-02] MEDS: BENZONATATE 100 MG CAPSULE PO SCH ×3 (05:38→22:10)
[2021-06-02] MEDS: PANTOPRAZOLE SODIUM 40 MG TABLET.DR PO SCH (06:17)
--- NOTE | 2021-06-02 06:39 | NUR ---
Patient is alert and oriented x4 and able to make needs known, on non-rebreather mask at 14L current spo2 is 97%, Midline to left upper arm in place and patent. Compliant with medication.VSs.Call light with in reach.
--- NOTE | 2021-06-02 07:30 | NUR ---
received in bed sitting up watching tv. on 15 Lpm non rebreather mask. denies pain. no sob noted. spo2 94-96%. stated he's ok. bed lowest and locked. siderails up. kept comfortable. call light in reach.
[2021-06-02] MEDS: ASCORBIC ACID 500 MG TABLET PO SCH (08:22)
[2021-06-02] MEDS: METFORMIN HCL 500 MG TABLET PO SCH ×2 (08:22→17:39)
[2021-06-02] MEDS: CHOLECALCIFEROL 1,000 UNIT TABLET PO SCH (08:22)
[2021-06-02] MEDS: DEXAMETHASONE SOD PHOSPHATE 4 MG INJ IV SCH (08:22)
[2021-06-02] MEDS: SULFAMETH/TRIMETH 800/160 MG TABLET PO SCH (08:23)
[2021-06-02] MEDS: FAMOTIDINE 20 MG TABLET PO SCH (08:23)
[2021-06-02] MEDS: APIXABAN 5 MG TABLET PO SCH ×2 (08:23→20:12)
[2021-06-02] MEDS: METOPROLOL SUCCINATE XL 25 MG TAB.SR.24H PO SCH (08:26)
[2021-06-02] MEDS: FLUTICASONE/VILANTEROL 1 EACH BLST.W.DEV INH SCH (10:01)
--- NOTE | 2021-06-02 11:06 | NUR ---
titrated to 13 Lpm non rebreather mask. sitting on the chair watching tv. no acute distress. no sob noted spo2 93-94%. engraver set up operator qing on the floor and aware.
[2021-06-02 11:43] VITALS: BP 112/75
[2021-06-02 16:00] VITALS: BP 120/75
--- NOTE | 2021-06-02 18:38 | NUR ---
lying in bed on his phone comfortable. remains on 13 LPM NRB tolerating well currently spo2 97%. denies pain or sob. safety measures kept. needs attended. call light in reach.
--- NOTE | 2021-06-02 19:30 | NUR ---
RECEIVED PT AWAKE, ALERT AND ORIENTEDX4. PT IN NO ACUTE DISTRESS. IV INTACT. PT ON 13L NONREBREATHER MASK. SAFETY AND COMFORT PROVIDED. WILL CONTINUE TO MONITOR.
--- NOTE | 2021-06-02 20:09 | NUR ---
HYDROMET SYRUP 5ML GIVEN AT 2009H PER PT REQUEST.
[2021-06-02 20:33] VITALS: BP 130/73
[2021-06-03 00:04] VITALS: BP 124/67
[2021-06-03 04:29] VITALS: BP 128/61
[2021-06-03] MEDS: BENZONATATE 100 MG CAPSULE PO SCH ×3 (05:49→21:09)
[2021-06-03] MEDS: PANTOPRAZOLE SODIUM 40 MG TABLET.DR PO SCH (06:07)
--- NOTE | 2021-06-03 06:30 | NUR ---
PT SLEPT INTERMITTENTLY. PRESCRIBED MEDICATION GIVEN AND PT TOLERATED IT WELL. IV INTACT. PT ON 13L NONREBREATHER MASK.OXYGEN SATURATION OF 97%.. SAFETY AND COMFORT PROVIDED. ALL NEEDS ARE MET. WILL ENDORSE TO INCOMING NURSE FOR CONTINUITY OF CARE.
[2021-06-03 07:15] LABS: HEMATOCRIT 37.8 % (36.7-47.1); MEAN CORPUSCULAR HEMOGLOBIN 30.7 uug (23.8-33.4); MEAN CORPUSCULAR VOLUME 91.6 fL (73.0-96.2); PLATELET COUNT (AUTO) 431 K/uL (152-348)
[2021-06-03 07:28] LABS: CARBON DIOXIDE 33 mmol/L (21-32); CHLORIDE 100 mmol/L (98-107); CREATININE 0.7 mg/dL (0.6-1.3); GLUCOSE 88 mg/dL (74-106); MAGNESIUM 2.2 mg/dL (1.8-2.4); PHOSPHOROUS 5.1 mg/dL (2.5-4.9); POTASSIUM 3.8 mmol/L (3.5-5.1); UREA NITROGEN, BLOOD 18 mg/dL (7-18)
--- NOTE | 2021-06-03 08:00 | NUR ---
RECEIVED PATIENT IN BED ON SITTING POSITION WITH 13 L NRM SATURATING 98% WITH NO SIGNS OF PAIN OR DISTRESS. ALERT AND ORIENTED X3, COMPLIANT WITH TX PLAN. SR ON MONITOR
[2021-06-03] MEDS: ASCORBIC ACID 500 MG TABLET PO SCH (08:32)
[2021-06-03] MEDS: METFORMIN HCL 500 MG TABLET PO SCH ×2 (08:32→17:04)
[2021-06-03] MEDS: CHOLECALCIFEROL 1,000 UNIT TABLET PO SCH (08:32)
[2021-06-03] MEDS: FAMOTIDINE 20 MG TABLET PO SCH (08:33)
[2021-06-03] MEDS: METOPROLOL SUCCINATE XL 25 MG TAB.SR.24H PO SCH (08:35)
[2021-06-03] MEDS: SULFAMETH/TRIMETH 800/160 MG TABLET PO SCH (08:35)
[2021-06-03] MEDS: DEXAMETHASONE SOD PHOSPHATE 4 MG INJ IV SCH (08:35)
[2021-06-03] MEDS: APIXABAN 5 MG TABLET PO SCH ×2 (08:36→21:10)
[2021-06-03] MEDS: FLUTICASONE/VILANTEROL 1 EACH BLST.W.DEV INH SCH (08:37)
[2021-06-03 11:35] VITALS: BP 99/58
--- NOTE | 2021-06-03 12:00 | NUR ---
SEEN BY HOSPITALIST MATT FOR FOLLOW-UP SEE NOTES
--- NOTE | 2021-06-03 15:19 | NUR ---
SEEN BY RT FOR PRONING, PATIENT TOLERATED 10 MINS NO SS OF DISTRESS SATURATING 97-98%
[2021-06-03 15:30] VITALS: BP 128/44
--- NOTE | 2021-06-03 18:49 | NUR ---
Patient is sitting up, watching tv. Alert and oriented x 4. Patient is on 13L NRM, oxygen saturating at 100%. Midline intact and patent. Patient compliant with medications and care. Call lights within reach and bed in lowest position.
--- NOTE | 2021-06-03 19:40 | NUR ---
patient alert oriented, no chest pain, sat 92 to 96 % at 13 liter non rebreather, patient still has non productive cough, patient uses commode for eliminations, patient heart rate increase to 130 when doing activity, but no complain of sob, call light within reach. cont to monitor.
[2021-06-03 20:12] VITALS: BP 104/53
[2021-06-03] MEDS: HYDROCODONE BIT/HOMATROPINE 5 ML UDC PO PRN (21:13)
[2021-06-04] VITALS: BP 129/58
[2021-06-04] MEDS: HYDROCODONE BIT/HOMATROPINE 5 ML UDC PO PRN ×2 (03:19→22:13)
[2021-06-04 04:18] VITALS: BP 119/64
--- NOTE | 2021-06-04 05:15 | NUR ---
patient alert oriented, tele monitor sinus rhythm sinus tachy during activity, tolerate 13 liter non rebreader mask oxygen, still complain of coughing, medicated as ordered, cont to monitor.
[2021-06-04] MEDS: BENZONATATE 100 MG CAPSULE PO SCH ×3 (05:32→22:07)
[2021-06-04] MEDS: PANTOPRAZOLE SODIUM 40 MG TABLET.DR PO SCH (06:04)
[2021-06-04 06:38] LABS: HEMATOCRIT 39.3 % (36.7-47.1); MEAN CORPUSCULAR HEMOGLOBIN 30.4 uug (23.8-33.4); PLATELET COUNT (AUTO) 395 K/uL (152-348)
[2021-06-04 07:07] LABS: CARBON DIOXIDE 29 mmol/L (21-32); CHLORIDE 100 mmol/L (98-107); CREATININE 0.6 mg/dL (0.6-1.3); FERRITIN 680 ng/mL (26-388); GLUCOSE 89 mg/dL (74-106); LACTATE DEHYDROGENASE 491 U/L (85-227); MAGNESIUM 2.4 mg/dL (1.8-2.4); PHOSPHOROUS 4.5 mg/dL (2.5-4.9); POTASSIUM 3.8 mmol/L (3.5-5.1); UREA NITROGEN, BLOOD 22 mg/dL (7-18)
[2021-06-04] MEDS: METFORMIN HCL 500 MG TABLET PO SCH ×2 (09:10→16:47)
[2021-06-04] MEDS: CHOLECALCIFEROL 1,000 UNIT TABLET PO SCH (09:10)
[2021-06-04] MEDS: SULFAMETH/TRIMETH 800/160 MG TABLET PO SCH (09:10)
[2021-06-04] MEDS: FAMOTIDINE 20 MG TABLET PO SCH (09:10)
[2021-06-04] MEDS: ASCORBIC ACID 500 MG TABLET PO SCH (09:10)
[2021-06-04] MEDS: METOPROLOL SUCCINATE XL 25 MG TAB.SR.24H PO SCH (09:14)
[2021-06-04] MEDS: APIXABAN 5 MG TABLET PO SCH ×2 (09:16→22:07)
[2021-06-04] MEDS: FLUTICASONE/VILANTEROL 1 EACH BLST.W.DEV INH SCH (09:17)
[2021-06-04] MEDS: DEXAMETHASONE SOD PHOSPHATE 4 MG INJ IV SCH (09:17)
[2021-06-04 11:32] VITALS: BP 121/65
--- NOTE | 2021-06-04 12:30 | NUR ---
PT tolerated physical therapy earlier and able to walk outside of his room with o2 set up @ 15lit nrb with sat of 95%.
[2021-06-04 16:00] VITALS: BP 104/73
--- NOTE | 2021-06-04 18:19 | NUR ---
Pt o2 sat 95% on 12lit NRB. PT has minimal coughing noted managed with his routine tesselon. Call light is within reach. Addendum: 06/04/21 at 1850 by RICK CHRISTIANSON RN 12 lit simple mask
[2021-06-04 19:55] VITALS: BP 107/55
[2021-06-05 00:32] VITALS: BP 106/62
[2021-06-05 04:40] VITALS: BP 117/73
--- NOTE | 2021-06-05 06:04 | NUR ---
Vs stable. Slept good. No complaint of pain presented throughout the night. Medicated once for cough with relief. All needs attended and met. No significant event reported. Continue care as planned.
[2021-06-05] MEDS: BENZONATATE 100 MG CAPSULE PO SCH ×3 (06:52→21:03)
[2021-06-05] MEDS: PANTOPRAZOLE SODIUM 40 MG TABLET.DR PO SCH (06:52)
[2021-06-05] MEDS: DEXAMETHASONE SOD PHOSPHATE 4 MG INJ IV SCH (08:13)
[2021-06-05] MEDS: FLUTICASONE/VILANTEROL 1 EACH BLST.W.DEV INH SCH (08:13)
[2021-06-05] MEDS: METFORMIN HCL 500 MG TABLET PO SCH ×2 (08:13→17:48)
[2021-06-05] MEDS: ASCORBIC ACID 500 MG TABLET PO SCH (08:14)
[2021-06-05] MEDS: CHOLECALCIFEROL 1,000 UNIT TABLET PO SCH (08:14)
[2021-06-05] MEDS: FAMOTIDINE 20 MG TABLET PO SCH (08:14)
[2021-06-05] MEDS: SULFAMETH/TRIMETH 800/160 MG TABLET PO SCH (08:14)
[2021-06-05] MEDS: APIXABAN 5 MG TABLET PO SCH ×2 (08:15→20:02)
[2021-06-05] MEDS: METOPROLOL SUCCINATE XL 25 MG TAB.SR.24H PO SCH (08:16)
[2021-06-05 12:00] VITALS: BP 101/53
[2021-06-05 16:00] VITALS: BP 104/56
--- NOTE | 2021-06-05 19:34 | NUR ---
Patient resting in bed. AOx4. On 25L at 50% HighFlow, saturating at 95-96%. left UA midline patent and intact. Patient denies pain/ discomfort at this time. Compliant with medications and care. Patient participated with physical therapy, tolerated well. Bed alarm on. Call light within reach. Will endorse to incoming shift for continuity of care.
--- NOTE | 2021-06-05 19:40 | NUR ---
Patient endorsed on HFNC on 15L/ 50%FiO2. Called to assess patient complaining of respiratory distress. Patient found sitting in semi-fowlers position in bed watching television, continuous pulse ox at bedside reading 94%/ 84 HR. Adequate respirations noted to be unlabored. Patient states he fells lightheaded and noticed his Spo2 was around 89% at the time. Increased flow to 25L/ Fio2 remains at 50%. Spo2 remains 94-95%. Patient agrees to new flow settings. Understands we can titrate up if needed. Would like to remain on 25L/50%, RN informed. Will continue to monitor throughout shift. Addendum: 06/06/21 at 0400 by RODRIGO LAUGHLIN RT [id number] RN called to assess patient requesting for Respiratory Therapist. Patient requested to be placed on simple mask instead of high flow nasal cannula. States he feels he does better on mask over HFNC. SpO2 remained >93%. No signs of respiratory distress noted. Breathing pattern symmetrical, unlabored. Placed on 8L simple mask with SpO2 reading 96-97%. Explained the risks and benefits of dry O2/HF O2. Patient requested to increase liter flow to 10L despite adequate SpO2 readings. Patient exhibits signs of anxiety, constantly looking at cont. pulse oximetry readings. RN informed of patients request to increase liter flow. Will continue to monitor.
[2021-06-05 20:35] VITALS: BP 136/92
--- NOTE | 2021-06-05 21:34 | NUR ---
Received pt awake on bed, on high flow O2 at 25L/50% FiO2 saturating at 94-95%. Due medications given on time and tolerated well, after finishing dinner. JESSEE midline still patent and intact. All needs attended. Call light placed within reach. Will continue to monitor.
[2021-06-06 00:10] VITALS: BP 112/63
[2021-06-06] MEDS: BENZONATATE 100 MG CAPSULE PO SCH ×3 (05:16→21:09)
--- NOTE | 2021-06-06 05:35 | NUR ---
Pt slept intermittently throughout the night, asked for RT a few times. He is currently on O2 via simple mask at 12LPM per request accg to RT. Pt is saturating at 96%. All needs attended. Call light placed within reach. Frequent visual checks done. Will endorse to next shift for continuity of care.
[2021-06-06] MEDS: PANTOPRAZOLE SODIUM 40 MG TABLET.DR PO SCH (06:26)
[2021-06-06 06:34] LABS: HEMATOCRIT 37.5 % (36.7-47.1); MEAN CORPUSCULAR HEMOGLOBIN 30.8 uug (23.8-33.4); MEAN CORPUSCULAR VOLUME 91.4 fL (73.0-96.2); PLATELET COUNT (AUTO) 355 K/uL (152-348)
[2021-06-06 06:43] LABS: CARBON DIOXIDE 31 mmol/L (21-32); CHLORIDE 101 mmol/L (98-107); CREATININE 0.7 mg/dL (0.6-1.3); GLUCOSE 86 mg/dL (74-106); MAGNESIUM 2.2 mg/dL (1.8-2.4); UREA NITROGEN, BLOOD 18 mg/dL (7-18)
[2021-06-06] MEDS: SULFAMETH/TRIMETH 800/160 MG TABLET PO SCH (08:42)
[2021-06-06] MEDS: ASCORBIC ACID 500 MG TABLET PO SCH (08:42)
[2021-06-06] MEDS: CHOLECALCIFEROL 1,000 UNIT TABLET PO SCH (08:42)
[2021-06-06] MEDS: DEXAMETHASONE SOD PHOSPHATE 4 MG INJ IV SCH (08:43)
[2021-06-06] MEDS: METFORMIN HCL 500 MG TABLET PO SCH ×2 (08:43→17:10)
[2021-06-06] MEDS: FAMOTIDINE 20 MG TABLET PO SCH (08:43)
[2021-06-06] MEDS: APIXABAN 5 MG TABLET PO SCH ×2 (08:44→21:12)
[2021-06-06] MEDS: METOPROLOL SUCCINATE XL 25 MG TAB.SR.24H PO SCH (08:44)
[2021-06-06] MEDS: FLUTICASONE/VILANTEROL 1 EACH BLST.W.DEV INH SCH (08:45)
[2021-06-06 11:31] VITALS: BP 114/64
[2021-06-06 15:41] VITALS: BP 99/39
--- NOTE | 2021-06-06 17:56 | NUR ---
patient is alert, oriented x4, verbally responsive, no sob, resp even nonlabored,skin warm and dry to touch, patient tolerated ambulating with PT with 15liter of supplemental oxygen via simple mask, dinner time oxygen rate decreased to 12liter via simple mask, saturating at 98%, after dinner offered patient to try to decrease the oxygen flow rate to 10liter via nasal canula per dr browne recommendation, however patient stated "no" he does not feel comfortable to decrease it more. will endorse to try it later by RT centrifugal extractor operator, no events or distress noted during shift, patient tolerates getting in and out of bed, going to bedside commode himself, and tolerates eating meals with simple mask.
[2021-06-06] MEDS: IPRATROPIUM BROMIDE 0.5 MG/2.5 ML NEBU NEB PRN (18:53)
[2021-06-06] MEDS: ALBUTEROL SULFATE 1.25 MG/3 ML NEBU NEB PRN (18:53)
[2021-06-06 20:00] VITALS: BP 109/45
--- NOTE | 2021-06-06 22:30 | NUR ---
Received pt awake on bed, alert and oriented x4 able to make needs known. On O2 via simple mask at 12LPM, saturating at 98%. Denies pain and discomfort at this time. JESSEE midline remains patent and intact. All needs attended. Call light placed within reach. Will continue to monitor.
[2021-06-07] VITALS: BP 100/61
[2021-06-07] MEDS: HYDROCODONE BIT/HOMATROPINE 5 ML UDC PO PRN (00:06)
[2021-06-07 04:00] VITALS: BP 111/40
[2021-06-07] MEDS: BENZONATATE 100 MG CAPSULE PO SCH ×3 (05:58→21:49)
[2021-06-07] MEDS: PANTOPRAZOLE SODIUM 40 MG TABLET.DR PO SCH (06:03)
--- NOTE | 2021-06-07 06:46 | NUR ---
Pt slept intermittently throughout the night. Easily arousable for care, able to makes needs known. On O2 via simple mask at 12LPM, saturating at 97%. Pt refused to titrate down oxygen. Due medications given on time and tolerated well. All needs attended. Call light placed within reach. Frequent visual checks done. Will endorse to next shift for continuity of care.
[2021-06-07] MEDS: FAMOTIDINE 20 MG TABLET PO SCH (08:17)
[2021-06-07] MEDS: METOPROLOL SUCCINATE XL 25 MG TAB.SR.24H PO SCH (08:17)
[2021-06-07] MEDS: SULFAMETH/TRIMETH 800/160 MG TABLET PO SCH (08:17)
[2021-06-07] MEDS: CHOLECALCIFEROL 1,000 UNIT TABLET PO SCH (08:17)
[2021-06-07] MEDS: METFORMIN HCL 500 MG TABLET PO SCH ×2 (08:17→17:04)
[2021-06-07] MEDS: ASCORBIC ACID 500 MG TABLET PO SCH (08:17)
[2021-06-07] MEDS: APIXABAN 5 MG TABLET PO SCH ×2 (08:23→20:06)
[2021-06-07] MEDS: DEXAMETHASONE SOD PHOSPHATE 4 MG INJ IV SCH (08:25)
[2021-06-07] MEDS: FLUTICASONE/VILANTEROL 1 EACH BLST.W.DEV INH SCH (08:58)
[2021-06-07 11:28] VITALS: BP 140/88
[2021-06-07 15:42] VITALS: BP 105/55
[2021-06-07] MEDS: ACETAMINOPHEN 325 MG TABLET PO PRN (15:55)
[2021-06-07 20:21] VITALS: BP 109/62
[2021-06-08 00:10] VITALS: BP 95/50
[2021-06-08 04:25] VITALS: BP 96/48
[2021-06-08] MEDS: BENZONATATE 100 MG CAPSULE PO SCH ×3 (05:10→21:20)
[2021-06-08] MEDS: PANTOPRAZOLE SODIUM 40 MG TABLET.DR PO SCH (06:09)
[2021-06-08] MEDS: FLUTICASONE/VILANTEROL 1 EACH BLST.W.DEV INH SCH (09:00)
--- NOTE | 2021-06-08 09:00 | NUR ---
Patient sitting on the chair by the bedside, alert and oriented x 4, denies of any pain, all due meds given per MD order. Patient refused breo elinancy, patient notified that I called the pharmacy to bring it upstairs , patient stated "EVEN IF YOU GIVE IT TO ME I WON'T TAKE IT". Explained the risk and benefits of taking and not taking it, still patient refused. Patient on 6LPM via nasal canula saturating at 95%, denies of any pain. Seen by Dr. Dyer. All needs met promptly. Placed call light within reach. Pt denies of any pain.
[2021-06-08] MEDS: SULFAMETH/TRIMETH 800/160 MG TABLET PO SCH (09:04)
[2021-06-08] MEDS: METFORMIN HCL 500 MG TABLET PO SCH ×2 (09:05→17:03)
[2021-06-08] MEDS: DEXAMETHASONE SOD PHOSPHATE 4 MG INJ IV SCH (09:05)
[2021-06-08] MEDS: CHOLECALCIFEROL 1,000 UNIT TABLET PO SCH (09:05)
[2021-06-08] MEDS: ASCORBIC ACID 500 MG TABLET PO SCH (09:05)
[2021-06-08] MEDS: FAMOTIDINE 20 MG TABLET PO SCH (09:05)
[2021-06-08] MEDS: METOPROLOL SUCCINATE XL 25 MG TAB.SR.24H PO SCH (09:10)
[2021-06-08] MEDS: APIXABAN 5 MG TABLET PO SCH ×2 (09:12→20:49)
[2021-06-08 11:11] VITALS: BP 122/72
[2021-06-08 14:54] VITALS: BP 121/52
[2021-06-08 20:21] VITALS: BP 107/59
[2021-06-09 00:03] VITALS: BP 115/71
[2021-06-09 04:18] VITALS: BP 118/70
--- NOTE | 2021-06-09 05:22 | NUR ---
Pt slept throughout the night. Tolerating 6L NC sating at 99%, will titrate to 5L. Pt able to make needs known. IV site intact. No other issues or concerns at this time, will endorse to day shift.
[2021-06-09] MEDS: PANTOPRAZOLE SODIUM 40 MG TABLET.DR PO SCH (06:23)
[2021-06-09] MEDS: BENZONATATE 100 MG CAPSULE PO SCH ×3 (06:23→21:21)
--- NOTE | 2021-06-09 06:41 | NUR ---
Pt refused to let this nurse titrate his oxygen. Pt was educated that he has been satting 95% and above all night but he still wishes to keep his oxygen at 6L.
[2021-06-09 07:11] LABS: HEMATOCRIT 38.7 % (36.7-47.1); MEAN CORPUSCULAR HEMOGLOBIN 31.5 uug (23.8-33.4); PLATELET COUNT (AUTO) 317 K/uL (152-348)
[2021-06-09 07:46] LABS: CARBON DIOXIDE 30 mmol/L (21-32); CHLORIDE 102 mmol/L (98-107); CREATININE 0.6 mg/dL (0.6-1.3); GLUCOSE 76 mg/dL (74-106); MAGNESIUM 2.4 mg/dL (1.8-2.4); POTASSIUM 3.8 mmol/L (3.5-5.1); UREA NITROGEN, BLOOD 12 mg/dL (7-18)
[2021-06-09] MEDS: CHOLECALCIFEROL 1,000 UNIT TABLET PO SCH (08:37)
[2021-06-09] MEDS: METFORMIN HCL 500 MG TABLET PO SCH ×2 (08:37→18:03)
[2021-06-09] MEDS: SULFAMETH/TRIMETH 800/160 MG TABLET PO SCH (08:37)
[2021-06-09] MEDS: DEXAMETHASONE SOD PHOSPHATE 4 MG INJ IV SCH (08:38)
[2021-06-09] MEDS: FAMOTIDINE 20 MG TABLET PO SCH (08:38)
[2021-06-09] MEDS: ASCORBIC ACID 500 MG TABLET PO SCH (08:38)
[2021-06-09] MEDS: METOPROLOL SUCCINATE XL 25 MG TAB.SR.24H PO SCH (08:43)
[2021-06-09] MEDS: APIXABAN 5 MG TABLET PO SCH ×2 (08:44→20:26)
[2021-06-09] MEDS: FLUTICASONE/VILANTEROL 1 EACH BLST.W.DEV INH SCH (08:55)
[2021-06-09 09:20] VITALS: BP 104/50
--- NOTE | 2021-06-09 09:20 | NUR ---
Pt is awake, alert/ oriented x 4. Currently Sinus rhythm on tele, saturating 98% on 6L NC. Pt's BP 104/50 (held Metoprolol for 0900 dose). Pt is not verbalized or showing any signs of acute distress or discomfort. Comfort measures provided, compliant with medications and care. Call light within reach. Will continue to monitor pt.
[2021-06-09 11:57] VITALS: BP 98/65
[2021-06-09 16:26] VITALS: BP 98/58
--- NOTE | 2021-06-09 19:10 | NUR ---
Pt is currently awake, alert/oriented x 4. Pt is independent in ADLs. Pt is currently sinus on tele, 6L NC. Comfort measures provided, pt is not in acute distress or discomfort. He ambulates to chair and bedside commode. Will endorse to shift leader RN.
[2021-06-09 20:31] VITALS: BP 125/85
--- NOTE | 2021-06-09 20:34 | NUR ---
Received pt sitting on the chair at bedside. AAO x4. On 6L O2 via NC, no acute distress noted. Denies pain/discomfort. Due meds given as ordered. Safety measures maintained. Call light within reach. Will continue to monitor.
[2021-06-10 00:16] VITALS: BP 123/66
[2021-06-10 04:47] VITALS: BP 128/66
[2021-06-10] MEDS: BENZONATATE 100 MG CAPSULE PO SCH ×3 (05:54→21:12)
[2021-06-10] MEDS: PANTOPRAZOLE SODIUM 40 MG TABLET.DR PO SCH (06:04)
--- NOTE | 2021-06-10 07:51 | NUR ---
Patient received laying in prone position. On 6L O2 delivered via nasal cannula. Denies SOB/discomfort. Safety measures maintained. Call light within reach. Will continue to monitor
[2021-06-10] MEDS: METFORMIN HCL 500 MG TABLET PO SCH ×2 (08:45→17:22)
[2021-06-10] MEDS: FAMOTIDINE 20 MG TABLET PO SCH (08:45)
[2021-06-10] MEDS: FLUTICASONE/VILANTEROL 1 EACH BLST.W.DEV INH SCH ×2 (08:46→09:00)
[2021-06-10] MEDS: ASCORBIC ACID 500 MG TABLET PO SCH (08:46)
[2021-06-10] MEDS: SULFAMETH/TRIMETH 800/160 MG TABLET PO SCH (08:46)
[2021-06-10] MEDS: CHOLECALCIFEROL 1,000 UNIT TABLET PO SCH (08:46)
[2021-06-10] MEDS: APIXABAN 5 MG TABLET PO SCH ×2 (08:47→21:12)
[2021-06-10] MEDS: DEXAMETHASONE SOD PHOSPHATE 4 MG INJ IV SCH (08:52)
[2021-06-10] MEDS: METOPROLOL SUCCINATE XL 25 MG TAB.SR.24H PO SCH (08:59)
[2021-06-10 12:13] VITALS: BP 98/54
[2021-06-10 16:18] VITALS: BP 102/51
[2021-06-10 20:24] VITALS: BP 110/66
--- NOTE | 2021-06-10 20:32 | NUR ---
RECD PT IN BED,RESTING QUIETLY, ALERT,ORIENTED X4, NO ACUTE DISTRESS NOTED ,ON 5L O2 VIA NC, SATURATION 95-96%.WILL CONTINUE TO MONITOR.
[2021-06-10] MEDS: IPRATROPIUM BROMIDE 0.5 MG/2.5 ML NEBU NEB PRN (21:16)
[2021-06-10] MEDS: ALBUTEROL SULFATE 1.25 MG/3 ML NEBU NEB PRN (21:16)
--- NOTE | 2021-06-10 22:30 | NUR ---
Received patient sitting up in bed. AAOx4. In no apparent distress. Denies any pain or SOB. On O2 at 6LPM via NC in place. No coughing noted at this time. NSR on tele with HR of 94/min. Midline on left UA intact and patent. Needs assessed and attended to. Safety measure maintained and call berry within reached.
[2021-06-11 00:15] VITALS: BP 110/53
[2021-06-11] MEDS: ACETAMINOPHEN 325 MG TABLET PO PRN (00:15)
[2021-06-11 04:24] VITALS: BP 107/63
[2021-06-11] MEDS: BENZONATATE 100 MG CAPSULE PO SCH ×2 (06:04→15:00)
[2021-06-11] MEDS: PANTOPRAZOLE SODIUM 40 MG TABLET.DR PO SCH (06:04)
--- NOTE | 2021-06-11 06:16 | NUR ---
AAOx4. In no acute distress. Denies any pain or SOB. On O2 at 6LPM via NC in place. O2 sat at 99%. patient reported occasional cough but non productive. NSR on tele with HR of 73/min. Midline on left UA intact and patent. Needs attended to and met. Safety measure maintained and call berry within reached.
[2021-06-11 06:45] LABS: HEMATOCRIT 37.9 % (36.7-47.1); MEAN CORPUSCULAR VOLUME 92.3 fL (73.0-96.2); PLATELET COUNT (AUTO) 259 K/uL (152-348)
[2021-06-11 07:23] LABS: CARBON DIOXIDE 31 mmol/L (21-32); CHLORIDE 105 mmol/L (98-107); CREATININE 0.7 mg/dL (0.6-1.3); FERRITIN 579 ng/mL (26-388); GLUCOSE 97 mg/dL (74-106); LACTATE DEHYDROGENASE 315 U/L (85-227); MAGNESIUM 2.2 mg/dL (1.8-2.4); PHOSPHOROUS 4.6 mg/dL (2.5-4.9); POTASSIUM 3.8 mmol/L (3.5-5.1); UREA NITROGEN, BLOOD 17 mg/dL (7-18)
--- NOTE | 2021-06-11 07:30 | NUR ---
Received patient awake, alert and oriented times 4. No sign of distress noted but patient does exhibit some SOB on exertion. Pt is onb 5L NC. Safety precautions are in place. Will continue to monitor.
[2021-06-11 08:00] VITALS: BP 112/66
[2021-06-11] MEDS: METFORMIN HCL 500 MG TABLET PO SCH ×2 (08:56→18:21)
[2021-06-11] MEDS: CHOLECALCIFEROL 1,000 UNIT TABLET PO SCH (08:56)
[2021-06-11] MEDS: ASCORBIC ACID 500 MG TABLET PO SCH (08:56)
[2021-06-11] MEDS: SULFAMETH/TRIMETH 800/160 MG TABLET PO SCH (08:56)
[2021-06-11] MEDS: FLUTICASONE/VILANTEROL 1 EACH BLST.W.DEV INH SCH (08:57)
[2021-06-11] MEDS: DEXAMETHASONE SOD PHOSPHATE 4 MG INJ IV SCH (08:58)
[2021-06-11] MEDS: FAMOTIDINE 20 MG TABLET PO SCH (08:58)
[2021-06-11] MEDS: APIXABAN 5 MG TABLET PO SCH (09:02)
[2021-06-11] MEDS: METOPROLOL SUCCINATE XL 25 MG TAB.SR.24H PO SCH (09:05)
[2021-06-11] MEDS ORDERED: PANT40TA49 PO (15:08)
[2021-06-11] MEDS ORDERED: METF-440 PO (15:08)
[2021-06-11] MEDS ORDERED: FAMO20TA8 PO (15:08)
[2021-06-11] MEDS ORDERED: ALBU1.25 NEB (15:08)
[2021-06-11] MEDS ORDERED: IBUP-1953 PO (15:08)
[2021-06-11] MEDS ORDERED: SODI45SP5 NS (15:08)
[2021-06-11] MEDS ORDERED: METO-356 PO (15:08)
[2021-06-11] MEDS ORDERED: FLUT1BLS INH (15:08)
[2021-06-11] MEDS ORDERED: CHOL100062 PO (15:08)
[2021-06-11] MEDS ORDERED: ONDA4TAB11 SL (15:08)
[2021-06-11] MEDS ORDERED: METH4TAB3 PO (15:08)
[2021-06-11] MEDS ORDERED: APIX5TAB PO (15:08)
[2021-06-11] MEDS ORDERED: BENZ-38 PO (15:08)
[2021-06-11] MEDS ORDERED: ASCO500T21 PO (15:08)
[2021-06-11] MEDS ORDERED: IPRA0.2S6 NEB (15:08)
[2021-06-11] MEDS ORDERED: Sulfameth/Trimeth 800/160 Mg PO (15:49)
[2021-06-11 16:52] VITALS: BP 141/69
--- NOTE | 2021-06-11 19:20 | NUR ---
Patient discharged to home, with all belongings, valuables.. ID band and IV discontinued. Patient also went to SNF with all his paperwork. Patient is on 5L of oxygen NC. Patient picked up by [facility]. Report called and given to Zulma MANZO at [facility]. 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
== END 2021-06-11 19:20 | DRG 137 ==
LOC: ER 16:45 → TELE3 23:15
PROVIDERS: ADMIT Nurse Practitioner Acute Care; ATTEND Registered Nurse
PROC: B546ZZA Ultrasonography of Right Subclavian Vein, Guidance (ICD-10-PCS; principal; 2021-04-22)
PROC: XW033E5 Introduction of Remdesivir Anti-infective into Peripheral Vein, Percutaneous Approach, New Technology Group 5 (ICD-10-PCS; principal; 2021-04-22)
PROC: 05H533Z Insertion of Infusion Device into Right Subclavian Vein, Percutaneous Approach (ICD-10-PCS; principal; 2021-04-22)
PROC: 05H633Z Insertion of Infusion Device into Left Subclavian Vein, Percutaneous Approach (ICD-10-PCS; 2021-04-23)
PROC: B547ZZA Ultrasonography of Left Subclavian Vein, Guidance (ICD-10-PCS; 2021-04-23)
PROC: XW033H5 Introduction of Tocilizumab into Peripheral Vein, Percutaneous Approach, New Technology Group 5 (ICD-10-PCS; 2021-04-28)
PROC: B546ZZA Ultrasonography of Right Subclavian Vein, Guidance (ICD-10-PCS; 2021-04-29)
PROC: 05H533Z Insertion of Infusion Device into Right Subclavian Vein, Percutaneous Approach (ICD-10-PCS; 2021-04-29)
PROC: 05H633Z Insertion of Infusion Device into Left Subclavian Vein, Percutaneous Approach (ICD-10-PCS; 2021-05-04)
PROC: B547ZZA Ultrasonography of Left Subclavian Vein, Guidance (ICD-10-PCS; 2021-05-04)
DX: U07.1 COVID-19 (principal); J96.01 Acute respiratory failure with hypoxia; J12.82 Pneumonia due to coronavirus disease 2019; E44.1 Mild protein-calorie malnutrition; E87.1 Hypo-osmolality and hyponatremia; E88.09 Other disorders of plasma-protein metabolism, not elsewhere classified; J15.9 Unspecified bacterial pneumonia; I47.2 Ventricular tachycardia; E11.9 Type 2 diabetes mellitus without complications; D75.839 Thrombocytosis, unspecified; E66.01 Morbid (severe) obesity due to excess calories; J45.909 Unspecified asthma, uncomplicated; Z88.1 Allergy status to other antibiotic agents; Z59.00 Homelessness unspecified; Z91.19 Patient's noncompliance with other medical treatment and regimen; Z68.38 Body mass index [BMI] 38.0-38.9, adult; F99 Mental disorder, not otherwise specified; D72.828 Other elevated white blood cell count
CPT/HCPCS: 36415; 36600; 70030-TC; 71045; 71275; 82785; 83605; 83615; 83735; 84100; 85025; 85610; 85730; 86140; 86480; 86738; 86803; 87040; 87086; 87278; 87328; 87340; 87806; 93005; 93307; 94640; 94664; 94760; 97161; A4663; A9150; G0378; J1100; J1650; J1956; J2270; J3262; J3490; J3535; J3590; J7030; J7040; J7050; J7614; Q0162; Q9967; U0003